=== PATIENT | female | born 1960 | race Caucasian/White ===

== ENCOUNTER 2016-09-12 08:00 | Day surgery (SDC) | payer MEDICARE, OTHER ==
[~2016-09-12 08:00] MED LIST: CLINDAMYCIN 900 MG in DEXTROSE 5% IN WATER 50 ML IVPB ONE; HEPARIN SODIUM,PORCINE 5,000 UNIT/ML 1 ML VIAL SQ ONE; Pre Op ABX Message 1 EACH MISC MISCELLANE ONE
[2016-09-12] MEDS ORDERED: ONDANSETRON 4 MG/2 ML VIAL IVP ONE (08:13)
[2016-09-12] MEDS ORDERED: LACTATED RINGERS 1,000 ML IV SCH (08:13)
[2016-09-12] MEDS ORDERED: DEXAMETHASONE SOD PHOSPHATE 10 MG/ML 1 ML VIAL IV ONE (08:13)
[2016-09-12] MEDS ORDERED: MIDAZOLAM 2 MG/2 ML VIAL IV PRN (08:13)
[2016-09-12] MEDS ORDERED: LIDOCAINE 1% 20 ML VIAL (10MG/ML) FOR IV START INTRADERMA ONE (08:40)
[2016-09-12] MEDS ORDERED: GENTAMICIN 320 MG in SODIUM CHLORIDE 0.9% 100 ML IVPB ONE (08:45)
--- NOTE | 2016-09-12 09:28 | P.HPIHPCON ---
History of Present Illness H&P Date: 09/12/16 Chief Complaint: Right upper quadrant pain Patient is a 56-year-old female who presented with right upper quadrant pain radiates to the back is associated with fatty food intolerance. His no nausea no vomiting. Does note weight loss. There's no history of jaundice regular rectus. No history of fever or chills. He does she did see the vegetable canner prior to the surgery and was cleared by them. Consent for Procedure: I have explained the operation/procedure to the patient, including the risks, benefits, side effects, alternative therapies (including not receiving the proposed treatment or service), the likelihood of the patient achieving his/her goals, and potential recuperation problems for the procedure/sedation/analgesia , as well as any blood products, if indicated. I also explained to the patient the risks, benefits and side effects of the alternatives, as well as the risks related to not receiving the proposed procedure, care, treatment, or services. - Constitutional Constitutional: Denies chills, Denies fever - EENT Eyes: denies blurred vision, denies pain - Cardiovascular Cardiovascular: Denies chest pain, Denies shortness of breath - Respiratory Respiratory: Denies cough, Denies 7 - Gastrointestinal Gastrointestinal: Reports as per HPI - Musculoskeletal Musculoskeletal: Denies myalgias - Integumentary Integumentary: Denies pruritus, Denies rash - Neurological Neurological: Denies numbness, Denies weakness - Psychiatric Psychiatric: Denies anxiety, Denies depression Past Medical History Past Medical History: Asthma, GERD/Reflux, Hyperlipidemia, Hypertension History of Any Multi-Drug Resistant Organisms: None Reported Past Surgical History: Joint Replacement, Orthopedic Surgery, Tubal Ligation Past Psychological History: Anxiety, Bipolar, Depression Smoking Status: Never smoker Past Alcohol Use History: None Reported Past Drug Use History: None Reported Medications and Allergies Home Medications Medication Instructions Recorded Confirmed Type Venlafaxine HCl ER [Effexor Xr] 250 mg PO DAILY 12/12/14 09/12/16 History traZODone HCL [Desyrel] 100 mg PO HS 12/12/14 09/12/16 History Atorvastatin [Lipitor] 10 mg PO HS 03/13/15 09/12/16 History Omeprazole [Omeprazole] 10 mg PO HS 03/13/15 09/12/16 History Allergies Allergy/AdvReac Type Severity Reaction Status Date / Time Penicillins Allergy Unknown Verified 09/12/16 08:14 sulfamethoxazole Allergy Unknown Verified 09/12/16 08:14 [From Bactrim] trimethoprim [From Bactrim] Allergy Unknown Verified 09/12/16 08:14 Surgical - Exam Vital Signs Temp Pulse Resp BP Pulse Ox 98.1 F 58 L 16 107/55 98 09/12/16 08:21 09/12/16 08:21 09/12/16 08:21 09/12/16 08:21 09/12/16 08:21 - General well developed, no distress - Eyes PERRL, normal ocular movement, no icteric - ENT normal pinna, normal nares, normal mucosa - Neck no masses - Respiratory normal expansion, normal respiratory effort - Cardiovascular Rhythm: regular - Abdomen Abdomen: soft, non tender - Integumentary no rash, no growths - Neurologic no disoriented, no combative - Musculoskeletal normal gait, normal posture Results - Imaging US - abdomen: report reviewed (Cholelithiasis) Assessment and Plan (1) Chronic cholecystitis with calculus Narrative/Plan: Patient's average risk she is chronically lithiasis with symptoms most likely chronic cholecystitis her history is consistent with gallbladder stone disease. Have recommended a laparoscopic possible open cholecystectomy risks benefits of the procedure including injury to the bile duct and bowel were all discussed patient stand and is willing to proceed. Status: Acute
[2016-09-12] MEDS ORDERED: MIDAZOLAM 2 MG/2 ML VIAL ONE (09:36)
[2016-09-12] MEDS ORDERED: DEXTROSE 5% IN WATER 50 ML BAG ONE (09:36)
[2016-09-12] MEDS ORDERED: PROPOFOL 10 MG/ML 20 ML VIAL IV ONE (09:36)
[2016-09-12] MEDS ORDERED: SUCCINYLCHOLINE CHLORIDE 100 MG/5 ML SYR IV ONE (09:36)
[2016-09-12] MEDS ORDERED: CLINDAMYCIN 150 MG/ML 6 ML VIAL ONE (09:36)
[2016-09-12] MEDS ORDERED: SODIUM CHLORIDE 0.9% 100 ML BAG ONE (09:36)
[2016-09-12] MEDS ORDERED: LIDOCAINE 1% INJ 10MG/ML (20 ML MDV) ONE (09:36)
[2016-09-12] MEDS ORDERED: GENTAMICIN 80 MG/2 ML (MDV) VIAL ONE (09:36)
[2016-09-12] MEDS ORDERED: ROCURONIUM BROMIDE 10 MG/ML 10 ML VIAL IV ONE (09:36)
[2016-09-12] MEDS ORDERED: NEOSTIGMINE 1 MG/ML 10 ML VIAL ONE (09:36)
[2016-09-12] MEDS ORDERED: LACTATED RINGERS 1,000 ML BAG IV ONE (09:36)
[2016-09-12] MEDS ORDERED: fentaNYL (PF) 50 MCG/ML 2 ML AMP ONE (09:36)
[2016-09-12] MEDS ORDERED: GLYCOPYRROLATE 0.2 MG/ML 2 ML VIAL ONE (09:36)
[2016-09-12] MEDS ORDERED: BUPIVACAIN-EPI 0.25%-1:200,000 30 ML VIAL SQ ONE ×2 (09:56)
[2016-09-12] MEDS ORDERED: LACTATED RINGERS 1,000 ML IV ONE (10:27)
--- NOTE | 2016-09-12 10:59 | P.OP ---
Date of Procedure: 09/12/16 Preoperative Diagnosis: Chronic choelcystitis Postoperative Diagnosis: Chronic choelcsytitis Procedure(s) Performed: Laparoscopic cholecystectomy Anesthesia: JUDIT Surgeon: Melissa Alvarez Pathology: other Condition: stable Disposition: PACU Operative Findings: Extensive adhesions with the peritoneum, very thick-walled gallbladder, indeterminant hole in the gallbladder led to some leakage which was thoroughly irrigated and sucked dry. It was sent for culture and cytology. Description of Procedure: The patient is a 6-year-old female who presented with epigastric and upper abdominal pain which localized in the right upper quadrant was tender with an ultrasound suggested cholelithiasis. Clinical diagnosis of chronic cholecystitis was made. The risks benefits and possible complications of the procedure were discussed in detail and informed consent was obtained. Patient was identified in the preop operating holding area questions were answered and she was taken back to the operating room where she was placed in the supine position. She was given general anesthesia with endotracheal intubation followed by the placement of an orogastric tube and a appropriate timeout was called the indication procedure ALLERGIES medications from her prophylaxis were all discussed. Abdomen is prepped and draped in the usual sterile surgical fashion supraumbilical region was infiltrated with quarter percent with local anesthesia and incision was made with 11 blade and Veress needle was introduced and abdomen was insufflated to 15 mmHg. Once that was done a 10 mm epigastric port and two 5 mm right upper quadrant ports were placed.the gallbladder was retracted cephalad and superiorly.The fundus was retracted so as to make the Calot's triangle more visible. There were inflammatory peritoneal adhesions and the gallbladder was distended. The adhesions were taken down with the help of blunt dissection and using some electrocautery, skeletonizing the cystic duct and the multiple branches of the cystic artery. Cystic duct was clipped proximally and distally followed by clipping of the branches of the cystic artery following which they were transected sharply with the help of the lg. The gallbladder was then taken off the gallbladder fossa with the help of electrocautery and placed in an Endo Catch bag and removed through the 10 m port site after dilating the port site with a Yumiko. The port was replaced and the gallbladder fossa was inspected and hemostasis was secured with the help of electrocautery the abdomen was thoroughly irrigated and sucked dry. Dashawn were noted to be in the appropriate position at this time to take procedure was terminated. the 10 mm port was removed and the port site was closed with the help of a Brennan Benavidez using 0 Vicryl.The Gas was shut off and all the 5 mm ports were removed. The abdomen was thoroughly desufflated. The remaining local anesthesia was infiltrated into the incisions and the incisions were closed with the help of 4-0 Monocryl Steri-Strips and dermabondl was applied. The patient was extubated and taken to recovery room in stable condition There were no complications.
[2016-09-12 11:04] VITALS: TEMP 96.9
[2016-09-12] MEDS: HYDROmorphone 1 MG/ML 1 ML SYRINGE IVP PRN ×3 (11:13→11:38)
[2016-09-12 12:07] VITALS: RESP 18
[2016-09-12] MEDS ORDERED: HYDROcodone/APAP 5-325MG 1 EACH TAB PO ONE (12:23)
[2016-09-12] MEDS: LACTATED RINGERS 1,000 ML IV ONE ×2 (14:22→15:15)
[2016-09-12 15:12] VITALS: BP 93/61; PULSE 61
== END 2016-09-12 15:24 | disposition home or self-care (01) ==
LOC: OR 08:00
PROVIDERS: ATTEND Surgery
DX: K80.10 Calculus of gallbladder with chronic cholecystitis without obstruction (principal); K66.0 Peritoneal adhesions (postprocedural) (postinfection); E78.2 Mixed hyperlipidemia; K21.9 Gastro-esophageal reflux disease without esophagitis; F41.9 Anxiety disorder, unspecified; F31.9 Bipolar disorder, unspecified; Z79.899 Other long term (current) drug therapy; Z88.1 Allergy status to other antibiotic agents; Z88.0 Allergy status to penicillin; Z88.2 Allergy status to sulfonamides; Z82.49 Family history of ischemic heart disease and other diseases of the circulatory system; Z87.891 Personal history of nicotine dependence
CPT/HCPCS: 47562; 88108; 88305; 87070; 87205; 87075; J2250; J1644; J1100; J2710; J2405; J2001; J3010; J1580; J1170; J0330; J2704; 88304; 88311

== ENCOUNTER → 2017-01-30 | Outpatient (CLI) | payer MEDICARE, OTHER ==
--- NOTE | 2017-01-31 07:48 | XR ---
Right foot HISTORY: Trauma and pain 3 views of the right foot The digits are flexed, correlate for flexion deformities. Bone mineralization and alignment maintaine d. Questionable lucency on the frontal view of the proximal phalanx of the fifth digit. There is soft tissue swelling present. IMPRESSION: Technically may limit sensitivity, difficult to exclude fracture at the fifth digit. Foll ow-up as indicated.
== END | disposition home or self-care (01) ==
LOC: RADXRMAIN 16:14
PROVIDERS: ATTEND Nurse Practitioner
DX: M79.671 Pain in right foot (principal)

== ENCOUNTER 2017-11-18 21:35 | Emergency (ER) | payer MEDICARE, OTHER ==
[2017-11-18 21:47] VITALS: TEMP 98.1
[2017-11-18 22:31] LABS: Basophils # (A) 0.1 k/uL (0-0.2); Basophils % (A) 1 %; Eosinophils # (A) 0.2 k/uL (0-0.7); Eosinophils % (A) 2 %; HCT 44.2 % (34.0-46.0); HGB 14.6 gm/dL (11.4-16.0); Lymphocytes # (A) 2.8 k/uL (1.0-4.8); Lymphocytes % (A) 27 %; MCH 28.3 pg (25.0-35.0); MCV 85.9 fL (80.0-100.0); Mean Platelet Volume 7.6; Monocytes # (A) 0.7 k/uL (0-1.0); Monocytes % (A) 6 %; Neutrophils # (A) 6.7 k/uL (1.3-7.7); Neutrophils % (A) 63 %; Platelet Count 222 k/uL (150-450); RBC 5.14 m/uL (3.80-5.40); RDW 14.2 % (11.5-15.5); WBC 10.6 k/uL (3.8-10.6)
[2017-11-18 22:42] LABS: INR 1.1 (<1.2); Prothrombin Time 10.4 sec (9.0-12.0)
[2017-11-18 22:44] LABS: ALT 33 U/L (9-52); AST 36 U/L (14-36); Albumin 2.9 g/dL (3.5-5.0); Alkaline Phosphatase 107 U/L (38-126); Anion Gap 8 mmol/L; Blood Urea Nitrogen 17 mg/dL (7-17); C Reactive Protein <5.0 mg/L (<10.0); Calcium 8.6 mg/dL (8.4-10.2); Carbon Dioxide 27 mmol/L (22-30); Chloride 104 mmol/L (98-107); Glucose 133 mg/dL (74-99); Potassium 3.6 mmol/L (3.5-5.1); Sodium 139 mmol/L (137-145); Total Bilirubin 0.2 mg/dL (0.2-1.3)
--- NOTE | 2017-11-18 22:50 | US ---
EXAMINATION TYPE: US venous doppler duplex LE RT DATE OF EXAM: 11/18/2017 10:02 PM COMPARISON: US 2013 CLINICAL HISTORY: Pain. Right leg pain SIDE PERFORMED: Right TECHNIQUE: The lower extremity deep venous system is examined utilizing real time linear array sonog mumtaz with graded compression, doppler sonography and color-flow sonography. VESSELS IMAGED: External Iliac Vein (EIV) Common Femoral Vein Deep Femoral Vein Greater Saphenous Vein * Femoral Vein Popliteal Vein Small Saphenous Vein * Proximal Calf Veins (* superficial vessels) Right Leg: Appears negative for DVT IMPRESSION: Negative exam. No evidence of deep venous thrombosis in the right leg.
[2017-11-18 23:06] LABS: Partial Thromboplastin Time 21.4 sec (22.0-30.0)
--- NOTE | 2017-11-18 23:18 | ED ---
General Adult HPI - General Chief complaint: Extremity Injury, Lower Stated complaint: Bilateral Leg Pain Time Seen by Provider: 11/18/17 21:49 Source: patient, RN notes reviewed Mode of arrival: EMS Limitations: no limitations - History of Present Illness Initial comments: 57-year-old female presents to the emergency department with a chief complaint of bilateral anterior thigh pain. She states that she went to twist and she noticed a little bit of pulling and bilateral thighs. She states it's worse on the right than the left. She states that Dr. Michelle was concerned about her right knee possibly infected in August she also like the blood work drawn that he ordered at that time. She denies any fever chills any falls. She denies any direct injury to the legs. She states her feeling better and when the initial injury happened. She was just concerned so she thought that she should be seen. She states she has been able to ambulate on them. She denies any numbness or tingling. She states it just feels like a muscle pulling. Patient denies any recent fever, chills, shortness of breath, chest pain, back pain, abdominal pain, nausea vomiting, numbness or tingling, dysuria or hematuria, constipation or diarrhea, headaches or visual changes, or any other current symptoms. - Related Data Home Medications Medication Instructions Recorded Confirmed Venlafaxine HCl ER [Effexor Xr] 150 mg PO DAILY 12/12/14 11/18/17 traZODone HCL [Desyrel] 100 mg PO HS 12/12/14 11/18/17 Cyanocobalamin (Vitamin B-12) 1,000 mcg PO DAILY 11/18/17 11/18/17 [Vitamin B-12] Loratadine [Claritin] 10 mg PO DAILY 11/18/17 11/18/17 Vitamin D3 500 unit PO DAILY 11/18/17 11/18/17 Previous Rx's Medication Instructions Recorded Ibuprofen [Motrin] 600 mg PO Q6HR PRN #20 tab 11/18/17 Allergies Allergy/AdvReac Type Severity Reaction Status Date / Time Penicillins Allergy Unknown Verified 11/18/17 22:20 sulfamethoxazole Allergy Unknown Verified 11/18/17 22:20 [From Bactrim] trimethoprim [From Bactrim] Allergy Unknown Verified 11/18/17 22:20 Review of Systems ROS Statement: Those systems with pertinent positive or pertinent negative responses have been documented in the HPI. ROS Other: All systems not noted in ROS Statement are negative. Past Medical History Past Medical History: Asthma, GERD/Reflux, Hyperlipidemia, Hypertension History of Any Multi-Drug Resistant Organisms: None Reported Past Surgical History: Joint Replacement, Orthopedic Surgery, Tubal Ligation Past Psychological History: Anxiety, Bipolar, Depression Smoking Status: Never smoker Past Alcohol Use History: None Reported Past Drug Use History: None Reported General Exam Limitations: no limitations General appearance: alert, in no apparent distress Eye exam: Present: normal appearance, PERRL, EOMI. Absent: scleral icterus, conjunctival injection, periorbital swelling ENT exam: Present: normal exam, mucous membranes moist Neck exam: Present: normal inspection. Absent: tenderness, meningismus, lymphadenopathy Respiratory exam: Present: normal lung sounds bilaterally. Absent: respiratory distress, wheezes, rales, rhonchi, stridor Cardiovascular Exam: Present: regular rate, normal rhythm, normal heart sounds. Absent: systolic murmur, diastolic murmur, rubs, gallop, clicks GI/Abdominal exam: Present: soft, normal bowel sounds. Absent: distended, tenderness, guarding, rebound, rigid Extremities exam: Present: normal inspection, full ROM, normal capillary refill. Absent: tenderness, pedal edema, joint swelling, calf tenderness Back exam: Present: normal inspection Neurological exam: Present: alert, oriented X3, CN II-XII intact Psychiatric exam: Present: normal affect, normal mood Skin exam: Present: warm, dry, intact, normal color. Absent: rash Course Vital Signs 11/18/17 21:44 Temperature 98.1 F Pulse Rate 81 Respiratory 18 Rate Blood Pressure 119/60 O2 Sat by Pulse 97 Oximetry Medical Decision Making - Medical Decision Making 57-year-old female presents for anterior thigh pain. This time we discussed most likely musculoskeletal strain. At this time lab work was reviewed. We discussed continued follow-up with her orthopedic Dr. Dr. Michelle. We discussed return parameters all questions. Patient stated that she understood and she is in agreement this plan. All questions have been answered. She will be discharged home. - Lab Data Result diagrams: 11/18/17 22:20 11/18/17 22:20 Lab Results 11/18/17 11/18/17 11/18/17 Range/Units 22:20 22:20 22:20 WBC 10.6 (3.8-10.6) k/uL RBC 5.14 (3.80-5.40) m/uL Hgb 14.6 (11.4-16.0) gm/dL Hct 44.2 (34.0-46.0) % MCV 85.9 (80.0-100.0) fL MCH 28.3 (25.0-35.0) pg MCHC 33.0 (31.0-37.0) g/dL RDW 14.2 (11.5-15.5) % Plt Count 222 (150-450) k/uL Neutrophils % 63 % Lymphocytes % 27 % Monocytes % 6 % Eosinophils % 2 % Basophils % 1 % Neutrophils # 6.7 (1.3-7.7) k/uL Lymphocytes # 2.8 (1.0-4.8) k/uL Monocytes # 0.7 (0-1.0) k/uL Eosinophils # 0.2 (0-0.7) k/uL Basophils # 0.1 (0-0.2) k/uL ESR 2 (0-20) mm/hr PT 10.4 (9.0-12.0) sec INR 1.1 (<1.2) APTT 21.4 L (22.0-30.0) sec Sodium 139 (137-145) mmol/L Potassium 3.6 (3.5-5.1) mmol/L Chloride 104 (98-107) mmol/L Carbon Dioxide 27 (22-30) mmol/L Anion Gap 8 mmol/L BUN 17 (7-17) mg/dL Creatinine 0.60 (0.52-1.04) mg/dL Est GFR (CKD-EPI)AfAm >90 (>60 ml/min/1.73 sqM) Est GFR (CKD-EPI)NonAf >90 (>60 ml/min/1.73 sqM) Glucose 133 H (74-99) mg/dL Calcium 8.6 (8.4-10.2) mg/dL Total Bilirubin 0.2 (0.2-1.3) mg/dL AST 36 (14-36) U/L ALT 33 (9-52) U/L Alkaline Phosphatase 107 (38-126) U/L C-Reactive Protein <5.0 (<10.0) mg/L Total Protein 5.0 L (6.3-8.2) g/dL Albumin 2.9 L (3.5-5.0) g/dL Disposition Clinical Impression: Muscle strain of thigh Disposition: HOME SELF-CARE Condition: Stable Instructions: Muscle Strain (ED) Additional Instructions: Please use medication as discussed. Please follow up with family doctor if symptoms have not improved over the next two days. Please return to the emergency room if your symptoms increase or worsen or for any other concerns. Prescriptions: Ibuprofen [Motrin] 600 mg PO Q6HR PRN #20 tab PRN Reason: Pain Referrals: Gogo Mandel MD [Primary Care Provider] - 1-2 days Time of Disposition: 23:38
[2017-11-18] MEDS ORDERED: KETOROLAC 30 MG/ML 1 ML VIAL IVP STA (23:25)
[2017-11-18 23:36] LABS: Erythrocyte Sedimentation Rate 2 mm/hr (0-20)
[2017-11-18 23:47] VITALS: BP 111/58; PULSE 78; RESP 16
--- NOTE | 2017-11-21 00:23 | CDI ---
Documentation Clarification OP Dear Dania CHARLES PA-C, PAC Please do addendum to ED report for missing specific site(RT/LT) of thigh strain. Thank you, Citlalli Blue Basket Grader If you have any questions, please contact Veneer Sawyer at [phone] [facility]
== END 2017-11-18 23:46 | disposition home or self-care (01) ==
LOC: EC 21:35
DX: S76.912A Strain of unspecified muscles, fascia and tendons at thigh level, left thigh, initial encounter (principal); S76.911A Strain of unspecified muscles, fascia and tendons at thigh level, right thigh, initial encounter; F41.9 Anxiety disorder, unspecified; F32.9 Major depressive disorder, single episode, unspecified; Z79.899 Other long term (current) drug therapy; Z88.0 Allergy status to penicillin; Z88.2 Allergy status to sulfonamides; X50.1XXA Overexertion from prolonged static or awkward postures, initial encounter
CPT/HCPCS: 99284; 96374; 36415; 80053; 85652; 85025; 85610; 85730; 86140; 93971; J1885

== ENCOUNTER 2018-03-13 23:11 | Emergency (ER) | payer MEDICARE, OTHER ==
[2018-03-13 23:25] VITALS: RESP 18
[2018-03-14] MEDS ORDERED: LIDOCAINE 1% INJ 10MG/ML (20 ML MDV) SQ ONE (01:10)
[2018-03-14] MEDS ORDERED: DIPH,PERTUS(ACELL)TETVAC-LF 0.5 ML VIAL IM ONE (01:10)
[2018-03-14] MEDS ORDERED: TOPICAL SKIN ADHESIVE 1 EACH AMP TOPICAL ONE (01:23)
[2018-03-14] MEDS ORDERED: IBUPROFEN 600 MG TAB PO STA (01:46)
--- NOTE | 2018-03-14 02:06 | ED ---
Wound/Laceration HPI - General Chief Complaint: Wound/Laceration Stated Complaint: Laceration Time Seen by Provider: 03/14/18 00:49 Source: patient, EMS Mode of arrival: ambulatory Limitations: no limitations - History of Present Illness Initial Comments: 57 year-old female patient presented to the emergency department today for evaluation of laceration to the distal tip of the right index finger. Patient states that just prior to arrival she was washing dishes when she scraped the finger on a new grater. Patient is unsure when her last tetanus shot was given. Bleeding is currently controlled and she denies any numbness or tingling to the finger. Denies any difficulty with range of motion. Denies any other injuries. Patient denies any headache, neck pain, back pain, chest pain, shortness of breath, dizziness, weakness, abdominal pain, nausea, vomiting , or difficulties with bowel movements or urination. - Related Data Home Medications Medication Instructions Recorded Confirmed Venlafaxine HCl ER [Effexor Xr] 150 mg PO DAILY 12/12/14 11/18/17 traZODone HCL [Desyrel] 100 mg PO HS 12/12/14 11/18/17 Cyanocobalamin (Vitamin B-12) 1,000 mcg PO DAILY 11/18/17 11/18/17 [Vitamin B-12] Loratadine [Claritin] 10 mg PO DAILY 11/18/17 11/18/17 Vitamin D3 500 unit PO DAILY 11/18/17 11/18/17 Previous Rx's Medication Instructions Recorded Ibuprofen [Motrin] 600 mg PO Q6HR PRN #20 tab 11/18/17 Allergies Allergy/AdvReac Type Severity Reaction Status Date / Time Penicillins Allergy Unknown Verified 03/13/18 23:21 sulfamethoxazole Allergy Unknown Verified 03/13/18 23:21 [From Bactrim] trimethoprim [From Bactrim] Allergy Unknown Verified 03/13/18 23:21 Review of Systems ROS Statement: Those systems with pertinent positive or pertinent negative responses have been documented in the HPI. ROS Other: All systems not noted in ROS Statement are negative. Past Medical History Past Medical History: Asthma, GERD/Reflux, Hyperlipidemia, Hypertension History of Any Multi-Drug Resistant Organisms: None Reported Past Surgical History: Joint Replacement, Orthopedic Surgery, Tubal Ligation Past Psychological History: Anxiety, Bipolar, Depression Smoking Status: Never smoker Past Alcohol Use History: None Reported Past Drug Use History: None Reported General Exam Limitations: no limitations General appearance: alert, in no apparent distress, other (This is a well- developed, well-nourished adult female patient in no acute distress. Vital signs upon presentation are temperature 98.2F, pulse 68, respirations 18, blood pressure 112/65, pulse ox 100% on room air.) Eye exam: Present: normal appearance, PERRL, EOMI. Absent: scleral icterus, conjunctival injection, periorbital swelling ENT exam: Present: normal exam, normal oropharynx, mucous membranes moist Respiratory exam: Present: normal lung sounds bilaterally. Absent: respiratory distress, wheezes, rales, rhonchi, stridor Cardiovascular Exam: Present: regular rate, normal rhythm, normal heart sounds. Absent: systolic murmur, diastolic murmur, rubs, gallop, clicks Extremities exam: Present: full ROM, normal capillary refill, other (patient has 1cm flap laceration to the distal tip of the right index finger. ). Absent : normal inspection, tenderness, pedal edema, joint swelling, calf tenderness Back exam: Present: normal inspection Neurological exam: Present: alert, oriented X3, CN II-XII intact Psychiatric exam: Present: normal affect, normal mood Skin exam: Present: warm, dry, intact, normal color. Absent: rash Course Vital Signs 03/13/18 03/14/18 23:21 02:18 Temperature 98.2 F 98.4 F Pulse Rate 68 69 Respiratory 18 18 Rate Blood Pressure 112/65 130/84 O2 Sat by Pulse 100 100 Oximetry Procedures - Laceration Laceration #1 Indication: laceration Site: other (Index finger, right) Size (cm): 1 Depth: simple, single layer Type of Sutures: other (Exofin) Patient Tolerated Procedure: well, no complications Medical Decision Making - Medical Decision Making 57 year-old female patient percents to the emergency department today for evaluation of laceration to the distal tip of the right index finger. There was 1 cm flap-like laceration noted to the distal tip of the finger. Neurovascular status was intact. The flap of skin was quite pale, did discuss the possibility that this would not adhered to the wound bed. We did repair the laceration with exofin an skin adhesive. Patient was updated on her tetanus shot. We discussed pain control and signs or symptoms of infection. She is instructed to follow-up with her primary care physician for recheck in 1- 2 days. Return parameters discussed in detail. She verbalizes understanding and agrees with this plan. Disposition Clinical Impression: Laceration of right index finger Disposition: HOME SELF-CARE Condition: Good Instructions: Finger Laceration (ED), Skin Adhesive Care (ED) Additional Instructions: Follow-up with your primary care physician for recheck in 1-2 days. Monitor for signs or symptoms of infection including but not limited to redness, swelling, drainage of pus, fever, or chills. Is patient prescribed a controlled substance at d/c from ED?: No Referrals: [facility] [Primary Care Provider] - 1-2 days Time of Disposition: 02:06
[2018-03-14 02:20] VITALS: BP 130/84; PULSE 69; TEMP 98.4
== END 2018-03-14 02:17 | disposition home or self-care (01) ==
LOC: EC 23:11
DX: S61.210A Laceration without foreign body of right index finger without damage to nail, initial encounter (principal); F31.9 Bipolar disorder, unspecified; F41.9 Anxiety disorder, unspecified; Z23 Encounter for immunization; Z98.890 Other specified postprocedural states; Z79.899 Other long term (current) drug therapy; Z88.0 Allergy status to penicillin; Z88.1 Allergy status to other antibiotic agents; Z88.2 Allergy status to sulfonamides; W26.8XXA Contact with other sharp object(s), not elsewhere classified, initial encounter; Y93.G1 Activity, food preparation and clean up
CPT/HCPCS: 12001; 73502; 76705; 90471; 90715; 99283; 99284

== ENCOUNTER 2018-03-14 07:25 | Emergency (ER) | payer MEDICARE, OTHER ==
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
--- NOTE | 2018-03-14 09:36 | US ---
EXAMINATION TYPE: US abdomen limited DATE OF EXAM: 03/14/2018 COMPARISON: Complete abdominal ultrasound June 29, 2016 CLINICAL HISTORY: Pain. Fall on right side EXAM MEASUREMENTS: Liver Length: 13.6 cm Gallbladder Wall: surgically absent CBD: 0.5 cm Right Kidney: 9.6 x 4.3 x 4.4 cm Pancreas: obscured Liver: wnl Gallbladder: surgically absent Evidence for sonographic Mendosa's sign: no CBD: visualized portions wnl, limited by overlying bowel gas Right Kidney: wnl Pancreas is obscured by overlying bowel gas on images saved. Visualized liver shows no suspicious mas s or ductal dilatation. No surrounding fluid or ascites is seen. Limited images of right kidney show no hydronephrosis. Gallbladder is surgically absent. IMPRESSION: No suspicious posttraumatic or acute finding seen to account for patient's symptoms of pa in. Interval cholecystectomy noted.
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
[2018-03-14 10:55] VITALS: BP 125/61; PULSE 60; RESP 18; TEMP 98.2
== END 2018-03-14 10:55 | disposition home or self-care (01) ==
LOC: EC 07:25
DX: S22.31XA Fracture of one rib, right side, initial encounter for closed fracture (principal); S70.11XA Contusion of right thigh, initial encounter; S61.219A Laceration without foreign body of unspecified finger without damage to nail, initial encounter; R10.9 Unspecified abdominal pain; F32.9 Major depressive disorder, single episode, unspecified; F41.9 Anxiety disorder, unspecified; Z79.899 Other long term (current) drug therapy; Z88.0 Allergy status to penicillin; Z88.1 Allergy status to other antibiotic agents; Z88.5 Allergy status to narcotic agent; Y00.XXXA Assault by blunt object, initial encounter; Y92.009 Unspecified place in unspecified non-institutional (private) residence as the place of occurrence of the external cause
CPT/HCPCS: 73502; 76705; 99284

== ENCOUNTER → 2018-08-06 | Outpatient (CLI) | payer MEDICARE, OTHER ==
--- NOTE | 2018-08-06 08:42 | XR ---
EXAMINATION TYPE: XR chest 2V DATE OF EXAM: 08/06/2018 COMPARISON: NONE TECHNIQUE: PA and lateral views submitted. HISTORY: Pain FINDINGS: The lungs are clear and there is no pneumothorax, pleural effusion, or focal pneumonia. Prominence the right perihilum. Hypertrophic and degenerative change of the spine. Surgical clips in the abdomen . There is limited inspiration. IMPRESSION: 1. No acute process. It does appear to be prominence of the right suprahilar region. Recommend CT of the chest for further analysis.
[2018-08-06 09:05] LABS: Basophils % (A) 1 %; Eosinophils # (A) 0.1 k/uL (0-0.7); Eosinophils % (A) 2 %; HCT 44.4 % (34.0-46.0); HGB 14.2 gm/dL (11.4-16.0); Lymphocytes # (A) 1.3 k/uL (1.0-4.8); Lymphocytes % (A) 22 %; MCH 28.8 pg (25.0-35.0); MCHC 31.9 g/dL (31.0-37.0); MCV 90.4 fL (80.0-100.0); Mean Platelet Volume 7.3; Monocytes # (A) 0.2 k/uL (0-1.0); Monocytes % (A) 4 %; Neutrophils % (A) 70 %; Platelet Count 197 k/uL (150-450); RBC 4.92 m/uL (3.80-5.40); RDW 14.2 % (11.5-15.5); WBC 5.8 k/uL (3.8-10.6)
[2018-08-06 09:21] LABS: ALT 40 U/L (9-52); AST 46 U/L (14-36); Albumin 2.7 g/dL (3.5-5.0); Alkaline Phosphatase 81 U/L (38-126); Anion Gap 4 mmol/L; Blood Urea Nitrogen 11 mg/dL (7-17); Calcium 8.7 mg/dL (8.4-10.2); Carbon Dioxide 31 mmol/L (22-30); Chloride 106 mmol/L (98-107); Glucose 81 mg/dL (74-99); Potassium 3.9 mmol/L (3.5-5.1); Sodium 141 mmol/L (137-145); Total Bilirubin 0.2 mg/dL (0.2-1.3); Total Protein 4.9 g/dL (6.3-8.2)
[2018-08-06 09:37] LABS: T4, Free (Free Thyroxine) 0.83 ng/dL (0.78-2.19)
[2018-08-06 16:46] LABS: Gliadin AB IgA, Unit <0.2 U/mL
[2018-08-06 17:00] LABS: Vitamin D 25 Hydroxy 32.2 ng/mL (30.0-100.0)
== END | disposition home or self-care (01) ==
LOC: RADXRMAIN 07:44
PROVIDERS: ATTEND Physician Assistant Medical
DX: R60.9 Edema, unspecified (principal); E78.2 Mixed hyperlipidemia; E55.9 Vitamin D deficiency, unspecified; Z00.01 Encounter for general adult medical examination with abnormal findings
CPT/HCPCS: 36415; 71046; 80053; 82306; 83516; 84439; 84443; 85025; 87045; 87046; 87328; 87329

== ENCOUNTER 2018-11-01 16:00 | Emergency (ER) | payer MEDICARE, OTHER ==
--- NOTE | 2018-11-01 16:57 | XR ---
EXAMINATION TYPE: XR cervical spine comp DATE OF EXAM: 11/01/2018 COMPARISON: NONE HISTORY: Shoulder pain TECHNIQUE: 5 views FINDINGS: Vertebra have normal alignment. There is narrowing and spur formation at C5-6. The other di sc spaces appear normal. Posterior elements are intact. Atlantoaxial facet joint is normal. There are no cervical ribs. Neural foramina appear normal. IMPRESSION: Mild spondylosis at C5-6. No fracture.
--- NOTE | 2018-11-01 16:58 | XR ---
EXAMINATION TYPE: XR shoulder complete RT DATE OF EXAM: 11/01/2018 COMPARISON: NONE HISTORY: Shoulder pain TECHNIQUE: 4 views FINDINGS: I see no fracture nor dislocation. Joint spaces are fairly normal. There are no pathologic calcifications. IMPRESSION: Negative right shoulder exam.
--- NOTE | 2018-11-01 17:04 | XR ---
EXAMINATION TYPE: XR Hip Complete RT DATE OF EXAM: 11/01/2018 COMPARISON: 03/14/2018 HISTORY: Shoulder pain. Pain hip pain TECHNIQUE: 2 views FINDINGS: I see no fracture nor dislocation. Hip joint space is fairly normal. Sacroiliac joint appea rs normal. There are no pathologic calcifications. IMPRESSION: Negative right hip exam. No change.
[2018-11-01] MEDS ORDERED: CYCLOBENZAPRINE 10MG STARTER 3 TAB BTL PO STA (17:12)
--- NOTE | 2018-11-01 17:12 | ED ---
Fall HPI - General Chief Complaint: Fall Stated Complaint: Fall,head injury Time Seen by Provider: 11/01/18 16:13 Source: patient Mode of arrival: ambulatory - History of Present Illness Initial Comments: 58-year-old female presenting today for chief complaint of slip and fall. Patient states she slipped and fell on ice. Patient states she fell on her right side, patient states on the fall she had right-sided neck and right shoulder pain. Patient states she is able to range the right shoulder however there is increased pain with full hyperextension and full flexion near the ear. Patient denies any numbness tingling or loss sensation of the upper extremity. Patient states she did hit her head, she states this is not hard and had no loss of consciousness, denies any headache, visual changes speech changes numbness tingling paresthesias, gait changes dizziness or any other neurological complaints. Patient states she also is tender patient on her right hip. She states she has no difficulty weightbearing or ranging of her head. Denies any shortening or rotation. Patient denies significant pain with range of motion, states is more tender to palpation. Remaining review of systems negative patient denies any low back pain, trauma to the chest or thorax , fever, chills, shortness of breath, chest pain, back pain, abdominal pain, nausea or vomiting, numbness or tingling, dysuria or hematuria, constipation or diarrhea, headaches or visual changes, or any other complaints. Upon arrival patient's vital signs within normal limits. - Related Data Home Medications Medication Instructions Recorded Confirmed Venlafaxine HCl ER [Effexor Xr] 150 mg PO DAILY 12/12/14 11/01/18 traZODone HCL [Desyrel] 100 mg PO HS 12/12/14 11/01/18 Cyanocobalamin (Vitamin B-12) 1,000 mcg PO DAILY 11/18/17 11/01/18 [Vitamin B-12] Loratadine [Claritin] 10 mg PO DAILY 11/18/17 11/01/18 Cholecalciferol [Vitamin D3] 5,000 unit PO DAILY 03/14/18 11/01/18 Allergies Allergy/AdvReac Type Severity Reaction Status Date / Time meperidine [From Demerol] Allergy Unknown Verified 11/01/18 17:00 Milk Containing Products Allergy Nausea & Verified 11/01/18 17:02 [Dairy] Vomiting & Diarrhea Penicillins Allergy Unknown Verified 11/01/18 17:00 sulfamethoxazole Allergy Unknown Verified 11/01/18 17:00 [From Bactrim] trimethoprim [From Bactrim] Allergy Unknown Verified 11/01/18 17:00 Review of Systems ROS Statement: Those systems with pertinent positive or pertinent negative responses have been documented in the HPI. ROS Other: All systems not noted in ROS Statement are negative. Past Medical History Past Medical History: Asthma, GERD/Reflux, Hyperlipidemia History of Any Multi-Drug Resistant Organisms: None Reported Past Surgical History: Joint Replacement, Orthopedic Surgery, Tubal Ligation Past Psychological History: Anxiety, Bipolar, Depression Smoking Status: Never smoker Past Alcohol Use History: None Reported Past Drug Use History: None Reported General Exam - General Exam Comments Initial Comments: General: The patient is awake and alert, in no distress, and does not appear acutely ill. Eye: +3 mm pupils are equal, round and reactive to light, extra-ocular movements are intact. No nystagmus. There is normal conjunctiva bilaterally. No signs of icterus. Ears, nose, mouth and throat: There are moist mucous membranes and no oral lesions. No raccoon or Chaparro sign Neck: The neck is supple, there is no tenderness or JVD. No midline tenderness to palpation of the cervical spine, there is right-sided paravertebral tenderness extends over the anterior right shoulder. Patient is palpable muscle tension. Cardiovascular: There is a regular rate and rhythm. No murmur, rub or gallop is appreciated. Respiratory: Lungs are clear to auscultation, respirations are non-labored, breath sounds are equal. No wheezes, stridor, rales, or rhonchi. Gastrointestinal: Soft, non-distended, non-tender abdomen without masses or organomegaly noted. There is no rebound or guarding present. Musculoskeletal: Normal inspection of the cervical spine and shoulder. Patient is able to fully range at the right shoulder with forward flexion, hyperextension internal/external rotation. Patient does complain of motion with max range of motion. Patient has no limitations, full strength 5. Patient is able to make the okay fierce cross thumbs-up finger opposition and extension at the wrist bilaterally. Ulnar median and radial nerve. Intact. Compartments soft and compressible. Patient is no tenderness to palpation of the wrist or elbow. Small contusion of the right hip mostly lateral right thigh. She is able to fully range at the lower extremities equal and comparison bilaterally with 5 out of 5 strength, no limitations in range of motion no shortening or internal rotation noted. No evidence of foot drop. Radial and DP pulses equal in comparison bilaterally. Capillary refill less than 2 seconds. Neurological: A&O x 3. CN II-XII intact, There are no obvious motor or sensory deficits. Coordination appears grossly intact. Speech is normal. Finger-nose quicken coordinated, no pronator drift. No gait ataxia. Skin: Skin is warm and dry and no rashes or lesions are noted. Psychiatric: Cooperative, appropriate mood & affect, normal judgment. Limitations: no limitations Course Vital Signs 11/01/18 11/01/18 16:08 17:28 Temperature 98.2 F 98 F Pulse Rate 77 67 Respiratory 18 20 Rate Blood Pressure 118/54 95/60 O2 Sat by Pulse 96 99 Oximetry Medical Decision Making - Medical Decision Making Well-appearing 58-year-old female presented for follow-up. Patient is not on anticoagulants. Patient denies any significant head trauma. Patient denies any headache dizziness or loss of consciousness. No focal neurological deficits. Patient has mostly right-sided paravertebral tenderness of the cervical spine, there is no evidence of midline tenderness. No midline tenderness to palpation of the thoracic or lumbar spine. Patient neurovascularly intact. Hip has full range of motion, there are small contusion otherwise normal examination. X-ray negative for acute osseous process. Imaging studies of the C-spine & shoulder also have no acute osseous process. Patient given instruction to follow-up outpatient primary care provider. Patient is to follow-up with orthopedist surgery if symptoms persist. Patient verbalizes understanding. At this time to feel patient is stable for discharge with outpatient follow-up. Return parameters were discussed at length the patient who verbalized understanding. Denies questions at this time. I discussed the case attending provider Dr. Qiu who is agreeable with plan and discharge. Pt given flexeril for muscle spasm, was educated on the proper administration as well as wrist involvement use prior to patient's discharge. She verbalized understanding. Disposition Clinical Impression: Fall due to ice or snow, Neck strain, Shoulder strain, Contusion, hip Disposition: HOME SELF-CARE Condition: Good Instructions (If sedation given, give patient instructions): Cervical Strain ( ED), Shoulder Sprain (ED) Additional Instructions: Please use medication as discussed. Please follow-up with family doctor in the next 2 days. Please return to emergency room if the symptoms increase or worsen or for any other concerns. Is patient prescribed a controlled substance at d/c from ED?: No Referrals: [facility] [Primary Care Provider] - 1-2 days Time of Disposition: 17:12
[2018-11-01 17:30] VITALS: BP 95/60; PULSE 67; RESP 20; TEMP 98
== END 2018-11-01 17:30 | disposition home or self-care (01) ==
LOC: EC 16:00
DX: S16.1XXA Strain of muscle, fascia and tendon at neck level, initial encounter (principal); S46.911A Strain of unspecified muscle, fascia and tendon at shoulder and upper arm level, right arm, initial encounter; S70.01XA Contusion of right hip, initial encounter; F41.9 Anxiety disorder, unspecified; F32.9 Major depressive disorder, single episode, unspecified; Z96.89 Presence of other specified functional implants; Z79.899 Other long term (current) drug therapy; Z88.5 Allergy status to narcotic agent; Z91.011 Allergy to milk products; Z88.0 Allergy status to penicillin; Z88.2 Allergy status to sulfonamides; W00.0XXA Fall on same level due to ice and snow, initial encounter; Y92.481 Parking lot as the place of occurrence of the external cause; Y93.89 Activity, other specified
CPT/HCPCS: 72050; 73502; 99283

== ENCOUNTER → 2018-11-21 | Outpatient (CLI) | payer OTHER ==
[2018-11-21 13:36] LABS: Basophils # (A) 0.1 k/uL (0-0.2); Basophils % (A) 1 %; Eosinophils # (A) 0.2 k/uL (0-0.7); Eosinophils % (A) 4 %; HCT 44.3 % (34.0-46.0); HGB 14.3 gm/dL (11.4-16.0); Lymphocytes % (A) 30 %; MCH 29.1 pg (25.0-35.0); MCHC 32.3 g/dL (31.0-37.0); MCV 90.1 fL (80.0-100.0); Mean Platelet Volume 6.6; Monocytes # (A) 0.4 k/uL (0-1.0); Monocytes % (A) 6 %; Neutrophils # (A) 3.8 k/uL (1.3-7.7); Neutrophils % (A) 57 %; Platelet Count 250 k/uL (150-450); RBC 4.91 m/uL (3.80-5.40); RDW 14.7 % (11.5-15.5); WBC 6.7 k/uL (3.8-10.6)
[2018-11-21 19:00] LABS: Albumin 4.1 g/dL (3.80-4.90); Anion Gap 6.1 mmol/L (4.00-12.00); Calcium 9.2 mg/dL (8.7-10.3); Carbon Dioxide 30.9 mmol/L (21.6-31.8); Potassium 4.1 mmol/L (3.5-5.5)
[2018-11-21 21:52] LABS: Hemoglobin A1C 5.6 % (4.0-6.0)
== END | disposition home or self-care (01) ==
LOC: LAB 12:57
PROVIDERS: ATTEND Orthopaedic Surgery
DX: Z01.818 Encounter for other preprocedural examination (principal); Z01.812 Encounter for preprocedural laboratory examination
CPT/HCPCS: 36415; 80048; 82040; 83036; 85025; 87070; 93005

== ENCOUNTER 2019-06-24 06:59 | Day surgery (SDC) | payer MEDICARE, OTHER ==
[2019-06-23 08:38] VITALS: BMI 32.1
[~2019-06-24 06:59] MED LIST changes: -CLINDAMYCIN 900 MG in DEXTROSE 5% IN WATER 50 ML IVPB ONE; -HEPARIN SODIUM,PORCINE 5,000 UNIT/ML 1 ML VIAL SQ ONE; +LACTATED RINGERS 1,000 ML IV SCH; +LIDOCAINE 1% 20 ML VIAL (10MG/ML) FOR IV START INTRADERMA PRN; -Pre Op ABX Message 1 EACH MISC MISCELLANE ONE
[2019-06-24] MEDS ORDERED: LACTATED RINGERS 1,000 ML IV ONE (07:08)
[2019-06-24 07:19] VITALS: TEMP 98.2
[2019-06-24] MEDS ORDERED: fentaNYL (PF) 50 MCG/ML 2 ML AMP ONE (07:28)
[2019-06-24] MEDS ORDERED: MIDAZOLAM 2 MG/2 ML VIAL ONE (07:28)
[2019-06-24] MEDS ORDERED: PROPOFOL 10 MG/ML 20 ML VIAL IV ONE (07:28)
--- NOTE | 2019-06-24 08:14 | P.PCN ---
Date of Procedure: 06/24/19 Description of Procedure: BRIEF HISTORY: Pleasant 58-year-old female presenting for elective outpatient colonoscopy for evaluation of symptoms of change in bowel habits and diarrhea. She reports chronic diarrhea over the past year. Last colonoscopy approximately 3 years ago normal per her recollection. She does report a family history of colon cancer in her mother. PROCEDURE PERFORMED: Colonoscopy with biopsy. PREOPERATIVE DIAGNOSIS: Diarrhea, altered bowel habits, last colonoscopy 3 years ago. ESTIMATED BLOOD LOSS: Minimal. IV sedation per Anesthesia. PROCEDURE: After informed consent was obtained, the patient, was brought into the endoscopy unit. IV sedation was administered by Anesthesia under continuous monitoring. Digital rectal examination was normal. Initially the Olympus CF-190 flexible video colonoscope was then inserted in the rectum, gradually advanced into the cecum without any difficulty. Careful examination was performed as the scope was gradually being withdrawn. Ileocecal valve and the appendiceal orifice were visualized and appeared normal. The terminal ileum was intubated and appeared normal with biopsies taken. Prep was excellent. Mucosa of the cecum, ascending colon, transverse colon, descending colon, sigmoid colon, and rectum appeared normal, with biopsies of the right and left colon taken. Retroflexion was performed in the rectum and no lesions were seen, mild internal hemorrhoids and skin tags noted. The patient tolerated the procedure well. IMPRESSION: Normal-appearing colon from rectum to cecum, and normal-appearing terminal ileum with biopsies of the right colon, left colon and terminal ileum taken. RECOMMENDATIONS: Findings of this examination were discussed with the patient and her friend. Okay to resume diet and medications. Await pathology from biopsies. Follow up with gastroenterology as previously scheduled for results of biopsies.
[2019-06-24 08:25] VITALS: BP 121/58; PULSE 69; RESP 18
== END 2019-06-24 08:41 | disposition home or self-care (01) ==
LOC: ORWHC2ENDO 06:59
PROVIDERS: ATTEND Internal Medicine
DX: K64.8 Other hemorrhoids (principal); K64.4 Residual hemorrhoidal skin tags; K63.9 Disease of intestine, unspecified; K21.9 Gastro-esophageal reflux disease without esophagitis; K52.9 Noninfective gastroenteritis and colitis, unspecified; R19.4 Change in bowel habit; Z80.0 Family history of malignant neoplasm of digestive organs; Z96.653 Presence of artificial knee joint, bilateral; Z98.51 Tubal ligation status; F32.9 Major depressive disorder, single episode, unspecified; Z79.899 Other long term (current) drug therapy; Z88.5 Allergy status to narcotic agent; Z88.0 Allergy status to penicillin; Z88.2 Allergy status to sulfonamides; Z91.011 Allergy to milk products
CPT/HCPCS: 88305; 45380; J2250; J3010; J2704

== ENCOUNTER → 2019-07-14 | Outpatient (CLI) | payer MEDICARE, OTHER ==
[2019-07-14 13:45] LABS: Basophils % (A) 1 %; Eosinophils # (A) 0.1 k/uL (0-0.7); Eosinophils % (A) 1 %; HCT 41.3 % (34.0-46.0); HGB 13.4 gm/dL (11.4-16.0); Lymphocytes # (A) 1.6 k/uL (1.0-4.8); Lymphocytes % (A) 22 %; MCH 29.2 pg (25.0-35.0); MCHC 32.5 g/dL (31.0-37.0); MCV 89.8 fL (80.0-100.0); Mean Platelet Volume 6.9; Monocytes # (A) 0.4 k/uL (0-1.0); Monocytes % (A) 6 %; Neutrophils % (A) 70 %; Platelet Count 252 k/uL (150-450); RDW 14.1 % (11.5-15.5); WBC 7.2 k/uL (3.8-10.6)
[2019-07-14 15:31] LABS: Erythrocyte Sedimentation Rate 8 mm/hr (0-20)
[2019-07-14 22:05] LABS: Gliadin AB IgA, Deaminated NEGATIVE (NEGATIVE); Gliadin AB IgA, Unit <0.2 U/mL; Gliadin AB IgG, Deaminated NEGATIVE (NEGATIVE)
== END | disposition home or self-care (01) ==
LOC: LABWHC1 12:16
PROVIDERS: ATTEND Nurse Practitioner
DX: R19.7 Diarrhea, unspecified (principal)
CPT/HCPCS: 36415; 83516; 85025; 85652

== ENCOUNTER 2020-06-14 19:44 | Observation (INO) | payer OTHER, MEDICARE ==
[2020-06-14 19:52] LABS: Glucose,Whole Blood 100 mg/dL (75-99)
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
[2020-06-14 20:08] LABS: Basophils # (A) 0.1 k/uL (0-0.2); Basophils % (A) 1 %; Eosinophils # (A) 0.2 k/uL (0-0.7); Eosinophils % (A) 2 %; HCT 45.8 % (34.0-46.0); HGB 15.3 gm/dL (11.4-16.0); Lymphocytes # (A) 2.9 k/uL (1.0-4.8); Lymphocytes % (A) 32 %; MCH 29.8 pg (25.0-35.0); MCHC 33.5 g/dL (31.0-37.0); MCV 88.9 fL (80.0-100.0); Mean Platelet Volume 7.3; Monocytes # (A) 0.5 k/uL (0-1.0); Monocytes % (A) 5 %; Neutrophils # (A) 5.4 k/uL (1.3-7.7); Neutrophils % (A) 58 %; Platelet Count 217 k/uL (150-450); RBC 5.15 m/uL (3.80-5.40); RDW 14.3 % (11.5-15.5); WBC 9.2 k/uL (3.8-10.6)
[2020-06-14 20:21] LABS: ALT 21 U/L (4-34); AST 34 U/L (14-36); African American GFR (CKD) >90 (>60 ml/min/1.73 sqM); Albumin 3.3 g/dL (3.5-5.0); Alcohol <10 mg/dL; Alkaline Phosphatase 116 U/L (38-126); Anion Gap 5 mmol/L; Blood Urea Nitrogen 19 mg/dL (7-17); Calcium 8.7 mg/dL (8.4-10.2); Carbon Dioxide 29 mmol/L (22-30); Chloride 105 mmol/L (98-107); Glucose 107 mg/dL (74-99); Non-African American GFR(CKD) 82 (>60 ml/min/1.73 sqM); Potassium 3.9 mmol/L (3.5-5.1); Sodium 139 mmol/L (137-145); Total Bilirubin 0.3 mg/dL (0.2-1.3); Total Protein 5.7 g/dL (6.3-8.2)
[2020-06-14 20:24] LABS: Partial Thromboplastin Time 20.6 sec (22.0-30.0)
[2020-06-14] MEDS ORDERED: MORPHINE SULFATE 4 MG/ML SYRINGE IV STA ×2 (20:39→21:54)
[2020-06-14] MEDS ORDERED: LIDOCAINE 5% PATCH TOPICAL STA (20:39)
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
[2020-06-14] MEDS ORDERED: LIDOCAINE 1%-EPI 1:100,000 20 ML VIAL SQ STA (20:46)
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
--- NOTE | 2020-06-14 21:18 | XR ---
EXAMINATION TYPE: XR foot complete RT DATE OF EXAM: 06/14/2020 COMPARISON: 01/30/2017 HISTORY: Pain TECHNIQUE: 3 views FINDINGS: There is an Achilles calcaneal spur. Metatarsals appear intact. There is some thickening of the proximal phalanx of the little toe related to old healed fracture. I see no acute fracture. Ther e is multiple hammertoe deformity. IMPRESSION: Calcaneal spurring. No acute fracture seen.
--- NOTE | 2020-06-14 21:19 | XR ---
EXAMINATION TYPE: XR shoulder complete RT DATE OF EXAM: 06/14/2020 COMPARISON: 11/01/2018 HISTORY: Pain. TECHNIQUE: 3 views FINDINGS: I see no fracture nor dislocation. Glenohumeral joint is intact. Soft tissues appear normal . There are no pathologic calcifications. IMPRESSION: Negative right shoulder exam. No change.
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
[2020-06-14] MEDS ORDERED: MECLIZINE 12.5 MG TAB PO STA (21:48)
[2020-06-14] MEDS ORDERED: DIPH,PERTUS(ACELL)TETVAC-LF 0.5 ML VIAL IM ONE (21:50)
[2020-06-14] MEDS ORDERED: METOCLOPRAMIDE 5 MG/ML 2 ML VIAL IVP STA (21:50)
[2020-06-14] MEDS ORDERED: SODIUM CHLORIDE 0.9% 1,000 ML IV STA (21:50)
[2020-06-14] MEDS ORDERED: NALOXONE 0.4 MG/ML 1 ML VIAL IV PRN (22:51)
[2020-06-14] MEDS ORDERED: ACETAMINOPHEN TAB 325 MG TAB PO PRN (22:51)
[2020-06-14] MEDS ORDERED: ONDANSETRON 4 MG/2 ML VIAL IVP PRN (22:51)
[2020-06-15] MEDS: oxyCODONE-APAP 5-325MG 1 EACH TAB PO PRN ×2 (02:12→15:18)
[2020-06-15 02:35] LABS: Appearance,Urine Clear (Clear); Bilirubin,Urine Negative (Negative); Blood,Urine Trace (Negative); Color,Urine Yellow; Glucose,Urine (UA) Negative (Negative); Ketones,Urine Negative (Negative); Leukocyte Esterase,Urine Moderate (Negative); Nitrite,Urine Negative (Negative); PH, Urine 5.5 (5.0-8.0); Protein,Urine Negative (Negative); RBC,Urine 3 /hpf (0-5); Squamous Epithelial Cell,Urine 1 /hpf (0-4); Urobilinogen,Urine <2.0 mg/dL (<2.0); WBC,Urine 4 /hpf (0-5)
[2020-06-15 02:36] LABS: Amphetamine Screen,Urine Not Detected (NotDetected); Barbiturate Screen,Urine Not Detected (NotDetected); Benzodiazepines Screen,Urine Not Detected (NotDetected); Cocaine Screen,Urine Not Detected (NotDetected); Methadone Screen, Urine Not Detected (NotDetected); Opiate Screen,Urine Detected (NotDetected); Oxycodone Screen, Urine Not Detected (NotDetected); Phencyclidine Screen,Urine Not Detected (NotDetected); Tricyclic Antidepressant,Urine Not Detected (NotDetected); Urn Cannabinoid Scrn Not Detected (NotDetected)
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
[2020-06-15] MEDS ORDERED: MECLIZINE 25 MG TAB PO PRN (09:36)
[2020-06-15] MEDS: VENLAFAXINE HCL ER 150 MG CAP PO SCH (09:58)
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
--- NOTE | 2020-06-15 14:25 | CT ---
EXAMINATION TYPE: CT brain wo con DATE OF EXAM: 06/15/2020 COMPARISON: 06/14/2020 INDICATION: Concussion, postconcussive syndrome DLP: 1099.4 mGycm, Automated exposure control for dose reduction was used. CONTRAST: None CT of the brain is performed utilizing 3 mm thick sections through the posterior fossa and 3 mm thick sections through the remaining calvarium. Study is performed within 24 hours of arrival to the hosp [facility]. No abnormal hyperdensity is present to suggest an acute intracranial hemorrhage. No mass lesion is evident. No acute infarcts are evident. Ventricles and sulci are appropriate for the patient age. Paranasal sinuses and mastoid air cells within the [id number] are clear. IMPRESSIONS: 1. No acute or subacute intracranial changes.
[2020-06-15] MEDS ORDERED: traZODone HCL 100 MG TAB PO SCH (21:00)
[2020-06-16] MEDS ORDERED: LEVOTHYROXINE 50 MCG TAB PO SCH (06:30)
[2020-06-16 08:33] VITALS: BP 117/55; PULSE 59; RESP 16; TEMP 98.5
[2020-06-16] MEDS: VENLAFAXINE HCL ER 150 MG CAP PO SCH (08:41)
[2020-06-16] MEDS: oxyCODONE-APAP 5-325MG 1 EACH TAB PO PRN (08:41)
[2020-06-16] MEDS ORDERED: FAMOTIDINE 20 MG TAB PO SCH (09:00)
[2020-06-16] MEDS ORDERED: LORATADINE 10 MG TAB PO SCH (09:00)
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
== END 2020-06-16 18:20 | disposition home or self-care (01) ==
LOC: EC 19:44 → 1SOBS 22:52
PROVIDERS: ADMIT Surgery; ATTEND Surgery
DX: G44.319 Acute post-traumatic headache, not intractable (principal); F07.81 Postconcussional syndrome; S01.01XA Laceration without foreign body of scalp, initial encounter; V09.9XXA Pedestrian injured in unspecified transport accident, initial encounter; E03.9 Hypothyroidism, unspecified; M25.512 Pain in left shoulder; M25.511 Pain in right shoulder; E66.9 Obesity, unspecified; Z68.31 Body mass index [BMI] 31.0-31.9, adult; K21.9 Gastro-esophageal reflux disease without esophagitis; F60.3 Borderline personality disorder; E55.9 Vitamin D deficiency, unspecified; M77.31 Calcaneal spur, right foot; Z79.899 Other long term (current) drug therapy; S90.31XA Contusion of right foot, initial encounter; V03.10XA Pedestrian on foot injured in collision with car, pick-up truck or van in traffic accident, initial encounter; J45.909 Unspecified asthma, uncomplicated; Z98.51 Tubal ligation status; Z96.653 Presence of artificial knee joint, bilateral; F41.9 Anxiety disorder, unspecified; Z80.0 Family history of malignant neoplasm of digestive organs; Z79.890 Hormone replacement therapy; Z88.0 Allergy status to penicillin; Z88.2 Allergy status to sulfonamides; Z91.011 Allergy to milk products; F41.1 Generalized anxiety disorder; F33.9 Major depressive disorder, recurrent, unspecified; Y92.410 Unspecified street and highway as the place of occurrence of the external cause
CPT/HCPCS: 96376; 12034; 90471; 96361; 96374; 96375; 99285; 36415; 93005; 97161; 97535; 97166; 86900; 86901; 80053; 84484; 85025; 85610; 85730; 86850; 81001; 80306; 80320; 72170; 73030 ×2; 73630; 71045; 72125; 70450 ×2; 71260; 74177; 90715; G0378 ×3; J2270; J2765; Q9967

== ENCOUNTER 2020-07-06 00:41 | Emergency (ER) | payer MEDICARE, OTHER ==
[2020-07-06 00:56] VITALS: RESP 18
[2020-07-06] MEDS ORDERED: SODIUM CHLORIDE 0.9% 1,000 ML IV STA (01:01)
[2020-07-06 01:16] LABS: Basophils # (A) 0.1 k/uL (0-0.2); Basophils % (A) 1 %; Eosinophils # (A) 0.3 k/uL (0-0.7); Eosinophils % (A) 3 %; HCT 38.3 % (34.0-46.0); HGB 13.3 gm/dL (11.4-16.0); Lymphocytes % (A) 20 %; MCH 31.6 pg (25.0-35.0); MCHC 34.8 g/dL (31.0-37.0); MCV 90.7 fL (80.0-100.0); Mean Platelet Volume 7.5; Monocytes # (A) 0.5 k/uL (0-1.0); Monocytes % (A) 5 %; Neutrophils # (A) 6.9 k/uL (1.3-7.7); Neutrophils % (A) 70 %; Platelet Count 215 k/uL (150-450); RBC 4.22 m/uL (3.80-5.40); RDW 14.3 % (11.5-15.5); WBC 9.8 k/uL (3.8-10.6)
[2020-07-06 01:28] LABS: ALT 17 U/L (4-34); AST 31 U/L (14-36); African American GFR (CKD) >90 (>60 ml/min/1.73 sqM); Albumin 3.2 g/dL (3.5-5.0); Alkaline Phosphatase 117 U/L (38-126); Anion Gap 5 mmol/L; Blood Urea Nitrogen 14 mg/dL (7-17); Calcium 8.5 mg/dL (8.4-10.2); Carbon Dioxide 29 mmol/L (22-30); Chloride 102 mmol/L (98-107); Glucose 142 mg/dL (74-99); Magnesium 1.6 mg/dL (1.6-2.3); Non-African American GFR(CKD) >90 (>60 ml/min/1.73 sqM); Potassium 3.7 mmol/L (3.5-5.1); Sodium 136 mmol/L (137-145); Total Bilirubin 0.3 mg/dL (0.2-1.3); Total Protein 6.1 g/dL (6.3-8.2)
--- NOTE | 2020-07-06 01:40 | XR ---
EXAM: XR Chest, 2 Views CLINICAL HISTORY: ITS.REASON XR Reason: Chest Pain TECHNIQUE: Frontal and lateral views of the chest. COMPARISON: June 14, 2020 FINDINGS: Lungs: Lung volumes are moderate. There is slight hazy increased density in the right perihilar region, increased since previous. Pleural space: Unremarkable. No pneumothorax. Heart: The cardiac silhouette is mildly enlarged. Mediastinum: Unremarkable. 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 Upper abdomen: No pneumoperitoneum under the diaphragm. IMPRESSION: Mild right perihilar atelectasis or infiltrate, new since previous. Mild cardiomegaly without clear evidence of CHF. Moderate osteophytosis throughout the thoracic spine, similar to previous.
--- NOTE | 2020-07-06 02:16 | ED ---
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 Pain began at rest is worse with deep inspiration or palpation. Pain is sharp in nature. Pain is not associated with any shortness of breath diaphoresis or lightheadedness. Pain does not radiate. Pain began after eating. - Related Data Home Medications Medication Instructions Recorded Confirmed Venlafaxine HCl ER [Effexor XR] 150 mg PO DAILY 12/12/14 06/15/20 traZODone HCL [Desyrel] 100 mg PO HS 12/12/14 06/15/20 Loratadine [Claritin] 10 mg PO DAILY 11/18/17 06/15/20 Cholecalciferol [Vitamin D3 (25 5,000 unit PO DAILY 03/14/18 06/15/20 Mcg = 1000 Iu)] Famotidine [Pepcid] 20 mg PO DAILY 06/14/20 06/15/20 Levothyroxine Sodium [Synthroid] 50 mcg PO DAILY 06/14/20 06/15/20 Previous Rx's Medication Instructions Recorded Meclizine [Antivert] 25 mg PO TID PRN #30 tab 06/16/20 oxyCODONE-APAP 5-325MG [Percocet 1 each PO Q4HR PRN #18 tab 06/16/20 5-325 mg] Allergies Allergy/AdvReac Type Severity Reaction Status Date / Time meperidine [From Demerol] Allergy Unknown Verified 07/06/20 00:56 Milk Containing Products Allergy Nausea & Verified 07/06/20 00:56 [Dairy] Vomiting & Diarrhea Penicillins Allergy Unknown Verified 07/06/20 00:56 sulfamethoxazole Allergy Unknown Verified 07/06/20 00:56 [From Bactrim] trimethoprim [From Bactrim] Allergy Unknown Verified 07/06/20 00:56 gluten AdvReac Abdominal Verified 07/06/20 00:56 Pain Review of Systems ROS Statement: Those systems with pertinent positive or pertinent negative responses have been documented in the HPI. ROS Other: All systems not noted in ROS Statement are negative. EKG Findings - EKG Comments: EKG Findings:: ANABELLE was obtained due to complaint of chest pain, EKG obtained at 12:47 AM, rate is 57 rhythm is sinus bradycardia there is a normal axis, normal intervals, there is no acute ST elevations or depressions no evidence of acute ischemia or infarction. Past Medical History Past Medical History: Asthma, GERD/Reflux Additional Past Medical History / Comment(s): states no rx for asthma, prev rx for cholesterol, none currently History of Any Multi-Drug Resistant Organisms: None Reported Past Surgical History: Joint Replacement, Orthopedic Surgery, Tubal Ligation Additional Past Surgical History / Comment(s): glen knee replaced x2, left shoulder rotator cuff, colonoscopy Past Anesthesia/Blood Transfusion Reactions: Previous Problems w/ Anesthesia Additional Past Anesthesia/Blood Transfusion Reaction / Comment(s): "didn't wake up for 3 days" after knee replacement Past Psychological History: Anxiety, Depression Smoking Status: Never smoker Past Alcohol Use History: None Reported Past Drug Use History: None Reported - Past Family History Mother Family Medical History: Cancer Additional Family Medical History / Comment(s): colon General Exam - General Exam Comments Initial Comments: Physical Exam GENERAL: Patient is well-developed and well-nourished. Patient is nontoxic and well-hydrated and is in no distress. HENT: Normocephalic, Atraumatic. EYES: PERRL, EOMI PULMONARY: Unlabored respirations. CARDIOVASCULAR: Bradycardic regular Tenderness to palpation of the chest wall ABDOMEN: Soft and nontender with normal bowel sounds. No tenderness to palpation SKIN: Skin is clear with no lesions or rashes and otherwise unremarkable. : Deferred NEUROLOGIC: Patient is alert and oriented x3. Moving all extremities spontaneously MUSCULOSKELETAL: Normal extremities with adequate strength and full range of motion. No lower extremity swelling or edema. No calf tenderness. PSYCHIATRIC: Normal psychiatric evaluation. Limitations: no limitations Course Vital Signs 07/06/20 07/06/20 07/06/20 00:51 00:55 01:00 Temperature 97.8 F Pulse Rate 61 59 L Pulse Rate [ 55 L Gas Generator Operator ] Respiratory 18 18 18 Rate Blood Pressure 88/47 94/51 O2 Sat by Pulse 97 100 Oximetry 07/06/20 07/06/20 07/06/20 01:30 02:00 02:39 Temperature Pulse Rate 59 L 63 58 L Pulse Rate [ Gas Generator Operator ] Respiratory 18 18 18 Rate Blood Pressure 102/80 98/49 101/56 O2 Sat by Pulse 100 100 98 Oximetry 07/06/20 05:39 Temperature 98.2 F Pulse Rate 67 Pulse Rate [ Gas Generator Operator ] Respiratory 18 Rate Blood Pressure 99/47 O2 Sat by Pulse 99 Oximetry Chest Pain MDM - MDM patient was seen and evaluated, history is obtained from the patient Patient presenting to the ER via ambulance with sternal chest pain, no associated lightheadedness, diaphoresis or shortness of breath Pain is reproducible on exam Patient was hypotensive on arrival however she had received nitro in route to the hospital EKG is nonischemic Chest x-ray unremarkable Labs were obtained, CT imaging of the chest was obtained due to moderate risk for PE given that the patient had recent immobilization of the foot and ankle Initial labs were relatively unremarkable aside from mildly elevated d-dimer CT imaging with no acute findings patient sleeping comfortably in the emergency department, repeat troponin was obtained at 3 hours and was again negative These results were discussed with patient, discussed high suspicion for musculoskeletal cause of her chest pain. Recommended supportive care. All questions pertaining care were answered return parameters were discussed patient was discharged home in stable condition. - Wells Criteria Clinical Symptoms of DVT: (0) No No Alternative Diagnosis: (0) No Immobilization of Surgery in Previous 4 Weeks: (0) No Previous DVT/PE: (0) No Hemoptysis: (0) No Malignancy: (0) No - PERC Rule g: (0) No No Prior History pf DVT/PE: (0) No No Recent Trauma or Surgery: (0) No Hemoptysis: (0) No No Exogenous Estrogen: (0) No No Clinical Signs Suggesting DVT: (0) No Disposition Clinical Impression: Atypical chest pain Disposition: HOME SELF-CARE Condition: Stable Instructions (If sedation given, give patient instructions): Chest Pain (ED), Costochondritis (ED) Is patient prescribed a controlled substance at d/c from ED?: No Referrals: [facility] [Primary Care Provider] - 1-2 days
[2020-07-06 02:26] LABS: D-Dimer 2.85 mg/L FEU (<0.60)
--- NOTE | 2020-07-06 02:41 | CT ---
EXAM: CT Angiography Chest With Intravenous Contrast CLINICAL HISTORY: ITS.REASON CT Reason: pleuritic chest pain, current foot fractur TECHNIQUE: Axial computed tomographic angiography images of the chest with intravenous contrast. CTDI is 21.27 mGy and DLP is 336.7 mGy-cm. This CT exam was performed using one or more of the following dose reduction techniques: automated exposure control, adjustment of the mA and/or kV according to patient size, and/or use of iterative reconstruction technique. MIP reconstructed images were created and reviewed. COMPARISON: No relevant prior studies available. FINDINGS: Pulmonary arteries: The pulmonary arterial tree is well-opacified with contrast. No pulmonary emboli are identified. Aorta: The thoracic aorta is nondilated. There is no aneurysm or dissection. Lungs: The lungs are well inflated. There is a small amount subsegmental atelectasis in the right costophrenic angle. No mass. Pleural space: Unremarkable. No significant effusion. No pneumothorax. Heart: The heart is mildly enlarged. No pericardial effusion is seen. No evidence of RV dysfunction. Bones/joints: Moderate osteophytosis in the mid to lower thoracic spine. No acute fracture or subluxation is seen. Soft tissues: Unremarkable. Lymph nodes: Unremarkable. No enlarged lymph nodes. IMPRESSION: No evidence of pulmonary embolism or acute aortic abnormality. Small amount of atelectasis in the right costophrenic angle. Mild cardiomegaly without evidence of CHF. Moderate osteophytosis in the lower thoracic spine.
[2020-07-06 03:00] LABS: INR 0.9 (<1.2); Prothrombin Time 9.5 sec (9.0-12.0)
[2020-07-06 05:54] VITALS: BP 99/47; PULSE 67; TEMP 98.2
== END 2020-07-06 05:39 | disposition home or self-care (01) ==
LOC: EC 00:41
DX: R07.89 Other chest pain (principal); R00.1 Bradycardia, unspecified; F41.9 Anxiety disorder, unspecified; F32.9 Major depressive disorder, single episode, unspecified; Z96.653 Presence of artificial knee joint, bilateral; K21.9 Gastro-esophageal reflux disease without esophagitis; Z79.899 Other long term (current) drug therapy; Z88.0 Allergy status to penicillin; Z88.1 Allergy status to other antibiotic agents; Z88.2 Allergy status to sulfonamides; Z88.5 Allergy status to narcotic agent; Z91.011 Allergy to milk products; Z91.018 Allergy to other foods
CPT/HCPCS: 36415; 93005; 85379; 83880; 80053; 83735; 84484; 85025; 85610; 85730; 71046; 71275; 99285; Q9967

== ENCOUNTER → 2020-07-07 | Outpatient (CLI) | payer MEDICARE, OTHER ==
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
== END | disposition home or self-care (01) ==
LOC: RADCTMAIN 08:18
PROVIDERS: ATTEND Orthopaedic Surgery
DX: M25.571 Pain in right ankle and joints of right foot (principal); Z88.2 Allergy status to sulfonamides; Z88.0 Allergy status to penicillin; Z88.5 Allergy status to narcotic agent

== ENCOUNTER 2020-09-23 10:52 | Emergency (ER) | payer MEDICARE, OTHER ==
[2020-09-23] MEDS ORDERED: MECLIZINE 12.5 MG TAB PO STA (11:26)
[2020-09-23] MEDS ORDERED: SODIUM CHLORIDE 0.9% 1,000 ML IV STA (11:26)
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
[2020-09-23 11:52] LABS: Basophils # (A) 0.1 k/uL (0-0.2); Basophils % (A) 1 %; Eosinophils # (A) 0.2 k/uL (0-0.7); Eosinophils % (A) 2 %; HCT 46.2 % (34.0-46.0); HGB 15.7 gm/dL (11.4-16.0); Lymphocytes # (A) 1.5 k/uL (1.0-4.8); Lymphocytes % (A) 20 %; MCHC 33.9 g/dL (31.0-37.0); MCV 88.4 fL (80.0-100.0); Monocytes # (A) 0.4 k/uL (0-1.0); Monocytes % (A) 5 %; Neutrophils # (A) 5.4 k/uL (1.3-7.7); Neutrophils % (A) 72 %; Platelet Count 253 k/uL (150-450); RBC 5.22 m/uL (3.80-5.40); WBC 7.5 k/uL (3.8-10.6)
[2020-09-23 12:03] LABS: ALT 30 U/L (4-34); AST 41 U/L (14-36); African American GFR (CKD) >90 (>60 ml/min/1.73 sqM); Albumin 3.8 g/dL (3.5-5.0); Alkaline Phosphatase 105 U/L (38-126); Anion Gap 5 mmol/L; Blood Urea Nitrogen 23 mg/dL (7-17); Calcium 9.4 mg/dL (8.4-10.2); Carbon Dioxide 29 mmol/L (22-30); Chloride 106 mmol/L (98-107); Glucose 74 mg/dL (74-99); Non-African American GFR(CKD) >90 (>60 ml/min/1.73 sqM); Potassium 4.2 mmol/L (3.5-5.1); Sodium 140 mmol/L (137-145); Total Bilirubin 0.4 mg/dL (0.2-1.3); Total Protein 6.2 g/dL (6.3-8.2)
[2020-09-23 12:13] LABS: INR 0.9 (<1.2); Prothrombin Time 9.8 sec (9.0-12.0)
[2020-09-23 12:28] LABS: Appearance,Urine Clear (Clear); Bacteria,Urine Rare /hpf; Bilirubin,Urine Negative (Negative); Blood,Urine Trace (Negative); Color,Urine Yellow; Glucose,Urine (UA) Negative (Negative); Ketones,Urine Negative (Negative); Leukocyte Esterase,Urine Trace (Negative); Mucus,Urine Rare /hpf; Nitrite,Urine Negative (Negative); PH, Urine 5.5 (5.0-8.0); Protein,Urine Trace (Negative); RBC,Urine 9 /hpf (0-5); Specific Gravity,Urine 1.029 (1.001-1.035); Squamous Epithelial Cell,Urine 4 /hpf (0-4); Urobilinogen,Urine <2.0 mg/dL (<2.0); WBC,Urine 1 /hpf (0-5)
[2020-09-23 12:29] LABS: Amphetamine Screen,Urine Not Detected (NotDetected); Barbiturate Screen,Urine Not Detected (NotDetected); Benzodiazepines Screen,Urine Not Detected (NotDetected); Cocaine Screen,Urine Not Detected (NotDetected); Methadone Screen, Urine Not Detected (NotDetected); Opiate Screen,Urine Not Detected (NotDetected); Oxycodone Screen, Urine Not Detected (NotDetected); Phencyclidine Screen,Urine Not Detected (NotDetected); Tricyclic Antidepressant,Urine Not Detected (NotDetected); Urn Cannabinoid Scrn Not Detected (NotDetected)
--- NOTE | 2020-09-23 12:58 | CT ---
EXAMINATION TYPE: CT brain cspine wo con DATE OF EXAM: 09/23/2020 COMPARISON: Brain 06/15/2020 HISTORY: 60-year-old female Headache and dizziness. CT DLP: 1291 mGycm Automated exposure control for dose reduction was used. Technique: Examination of the head was done in axial plane without intravenous contrast. Coronal and sagittal reconstructions performed. CT of the cervical spine was obtained in axial plane without intravenous injection of contrast mater ial. Coronal and sagittal reformatted images were obtained from the axial views for evaluation of f ractures, spinal alignment and canal. FINDINGS: Head: There is no evidence of acute intracranial hemorrhage, acute ischemic changes, mass, mass-effect, or extra-axial fluid collection. There is no effacement of cerebral sulci or basal subarachnoid cister ns. There is no hydrocephalus. There is no midline shift. Seth-white matter distinction is preserv ed. Partially empty sella. Paranasal sinuses and mastoid air cells are well pneumatized. Orbits and globes are intact. Cervical spine: No craniocervical junction abnormality, predental space widening, or prevertebral soft tissue swellin g. Mild degenerative change at the C1 dens articulation. Moderate distention plate degenerative change at C5-C6 with disc osteophyte complex mildly narrowing the spinal canal at this level. Alignment is maintained. No acute fracture of the cervical spine. Degenerative change at the right TMJ. Mild uncovertebral joint arthropathy lower cervical spine. Sagittal and coronal reformatted images confirm above findings. COMBINED IMPRESSION: 1. No acute intracranial abnormality seen. 2. No acute fracture or malalignment of the cervical spine. Moderate degenerative disc disease C5-C6 with mild narrowing of the spinal canal at this level.
[2020-09-23 12:59] VITALS: RESP 20
--- NOTE | 2020-09-23 13:05 | CT ---
EXAMINATION TYPE: CT angio head neck DATE OF EXAM: 09/23/2020 COMPARISON: CT brain same day. Also, CT chest 07/06/2020 HISTORY: 60-year-old female Headache and dizziness. TECHNIQUE: Contiguous axial scanning of the head and neck performed with IV Contrast, patient injecte d with 65 mL of Isovue 370. Coronal/sagittal MIP reconstructions performed. 3-D reconstructions gener ated on a dedicated independent workstation. CT DLP: 462 mGycm Automated exposure control for dose reduction was used. FINDINGS: NECK: A 9 mm AP window lymph node is decreased in size from 07/06/2020. Bovine configuration to the aortic arch. The vertebral arteries are codominant and patent throughout the course. The right common and internal carotid arteries are widely patent. The left common and internal carotid arteries are widely patent. Mild atherosclerotic calcification a t the origin of the left external carotid artery. HEAD: The vertebral and basilar arteries as well as the remainder of the posterior circulation is patent. Bilateral posterior indicating arteries are visualized. Mild apical scarring calcifications within the carotid siphons. Internal carotid arteries are patent as is the remainder of the anterior circulation. No aneurysmal change is seen. IMPRESSION: NECK: 1. BOVINE CONFIGURATION TO THE AORTIC ARCH. 2. WIDELY PATENT CAROTID AND VERTEBRAL ARTERIES OF THE NECK. HEAD: 3. NO EVIDENCE FOR INTRACRANIAL ARTERIAL OCCLUSION, SIGNIFICANT STENOSIS, OR ANEURYSMAL CHANGE.
[2020-09-23] MEDS ORDERED: KETOROLAC 15 MG/ML 1 ML VIAL IVP STA (13:21)
[2020-09-23 13:57] VITALS: BP 114/89; PULSE 73; TEMP 98.3
== END 2020-09-23 13:59 | disposition home or self-care (01) ==
LOC: EC 10:52
DX: R42 Dizziness and giddiness (principal); F07.81 Postconcussional syndrome; F41.9 Anxiety disorder, unspecified; F32.9 Major depressive disorder, single episode, unspecified; K21.9 Gastro-esophageal reflux disease without esophagitis; Z79.899 Other long term (current) drug therapy; Z88.0 Allergy status to penicillin; Z88.1 Allergy status to other antibiotic agents; Z88.2 Allergy status to sulfonamides; Z88.5 Allergy status to narcotic agent; Z91.011 Allergy to milk products; Z96.653 Presence of artificial knee joint, bilateral
CPT/HCPCS: 36415; 93005; 80053; 84484; 85025; 85610; 81001; 80306; 72125; 70496; 70450; 70498; 99284; 96374; 96361; J1885; Q9967

== ENCOUNTER 2020-10-14 15:19 | Emergency (ER) | payer MEDICARE, OTHER ==
[2020-10-14 15:42] VITALS: BP 120/78; PULSE 69; RESP 18; TEMP 98.5
[2020-10-14] MEDS ORDERED: MECLIZINE 12.5 MG TAB PO STA (16:37)
--- NOTE | 2020-10-14 17:12 | CT ---
EXAMINATION TYPE: CT brain xenia lara con DATE OF EXAM: 10/14/2020 COMPARISON: 09/23/2020. HISTORY: Dizziness with fall. Posterior head injury. CT DLP: 1349 mGycm Automated exposure control for dose reduction was used. TECHNIQUE: CT scan of the head and cervical spine are performed without contrast. FINDINGS: There is no acute intracranial hemorrhage, mass effect, or midline shift identified. The ventricles and sulci are within normal limits in size. The globes are intact and the visualized sin uses are clear. Cervical spine is visualized in its entirety from C1 through upper thoracic levels and demonstrates s atisfactory alignment without evidence of acute fracture or dislocation. Prevertebral soft tissue ap pears within normal limits. The C1-C2 articulation is unremarkable. Moderate to severe C5-C6 spondy losis. IMPRESSION: 1. There is no acute fracture or dislocation evident in the cervical spine. 2. No acute intracranial hemorrhage, mass effect, or midline shift is seen.
--- NOTE | 2020-10-14 17:25 | ED ---
Fall HPI - General Chief Complaint: Fall Stated Complaint: Fall head injury Time Seen by Provider: 10/14/20 16:15 Source: patient Mode of arrival: wheelchair - History of Present Illness Initial Comments: 60-year-old female presents to the emergency department with a chief complaint of a fall. Patient has history of vertigo and takes Antivert but did not take it this morning. States she was undergoing physical therapy when she felt dizzy, and fell to the ground. States she had her head and occipital region on an object as she went down. She did not lose consciousness. Denies any blood thinners. States she has laceration to occipital region of her head but the bleeding has resolved. Denies any significant pain. Does report mild tenderness in bilateral paraspinal region of the cervical spine. Denies one- sided weakness or paresthesias, blurry vision, gait instability. - Related Data Home Medications Medication Instructions Recorded Confirmed Venlafaxine HCl ER [Effexor XR] 150 mg PO DAILY 12/12/14 10/14/20 traZODone HCL [Desyrel] 100 mg PO HS 12/12/14 10/14/20 Cholecalciferol [Vitamin D3 (25 5,000 unit PO DAILY 03/14/18 10/14/20 Mcg = 1000 Iu)] Famotidine [Pepcid] 20 mg PO DAILY 06/14/20 10/14/20 Levothyroxine Sodium [Synthroid] 50 mcg PO DAILY 06/14/20 10/14/20 Meloxicam [Mobic] 15 mg PO DAILY 09/23/20 10/14/20 Allergies Allergy/AdvReac Type Severity Reaction Status Date / Time meperidine [From Demerol] Allergy Unknown Verified 10/14/20 17:00 Milk Containing Products Allergy Nausea & Verified 10/14/20 17:00 [Dairy] Vomiting & Diarrhea Penicillins Allergy Unknown Verified 10/14/20 17:00 sulfamethoxazole Allergy Unknown Verified 10/14/20 17:00 [From Bactrim] trimethoprim [From Bactrim] Allergy Unknown Verified 10/14/20 17:00 gluten AdvReac Abdominal Verified 10/14/20 17:00 Pain Review of Systems ROS Statement: Those systems with pertinent positive or pertinent negative responses have been documented in the HPI. ROS Other: All systems not noted in ROS Statement are negative. Past Medical History Past Medical History: Asthma, GERD/Reflux Additional Past Medical History / Comment(s): states no rx for asthma, prev rx for cholesterol, none currently History of Any Multi-Drug Resistant Organisms: None Reported Past Surgical History: Joint Replacement, Orthopedic Surgery, Tubal Ligation Additional Past Surgical History / Comment(s): glen knee replaced x2, left shoulder rotator cuff, colonoscopy Past Anesthesia/Blood Transfusion Reactions: Previous Problems w/ Anesthesia Additional Past Anesthesia/Blood Transfusion Reaction / Comment(s): "didn't wake up for 3 days" after knee replacement Past Psychological History: Anxiety, Depression Smoking Status: Never smoker Past Alcohol Use History: None Reported Past Drug Use History: None Reported - Past Family History Mother Family Medical History: Cancer Additional Family Medical History / Comment(s): colon General Exam Limitations: no limitations General appearance: alert, in no apparent distress Head exam: Present: atraumatic, normocephalic. Absent: normal inspection (2 cm laceration on the occipital region of the head.), other (negative Chaparro sign, raccoon eyes, hemotympanum.) Eye exam: Present: normal appearance, PERRL, EOMI Pupils: Present: normal accommodation ENT exam: Present: normal exam, normal oropharynx, mucous membranes moist Neck exam: Present: normal inspection, full ROM. Absent: tenderness Respiratory exam: Present: normal lung sounds bilaterally. Absent: respiratory distress Cardiovascular Exam: Present: regular rate, normal rhythm, normal heart sounds GI/Abdominal exam: Present: soft. Absent: distended, tenderness, guarding, rebound Extremities exam: Present: normal inspection, full ROM, normal capillary refill. Absent: tenderness, pedal edema, joint swelling Back exam: Present: normal inspection, full ROM. Absent: tenderness, CVA tenderness (R), CVA tenderness (L) Neurological exam: Present: alert, oriented X3, CN II-XII intact, normal gait, reflexes normal Psychiatric exam: Present: normal affect, normal mood Skin exam: Present: warm, dry, intact, normal color Course Vital Signs 10/14/20 15:37 Temperature 98.5 F Pulse Rate 69 Respiratory 18 Rate Blood Pressure 120/78 O2 Sat by Pulse 100 Oximetry Procedures - Laceration Laceration #1 Consent Obtained: verbal consent Indication: laceration Site: scalp Size (cm): 2 Description: linear, clean Depth: simple, single layer Sedation/Analgesia: none Pre-repair: irrigated extensively Type of Sutures: other ([place]) Size of Sutures: other ([place]) Number of Sutures: 4 Technique: simple, interrupted Patient Tolerated Procedure: well, no complications Medical Decision Making - Medical Decision Making 60-year-old female with history of vertigo presents to the emergency department with chief complaint of a fall. On physical examination patient has a superficial laceration measuring approximately 2 cm in length in the occipital region of the head. This was repaired with 4 eduar after thorough irrigation. Brain and C-spine CT shows no acute findings. Patient was also given Antivert and she feels better. EKG showing sinus rhythm. Return parameters discussed the patient was understanding and agreeable. Case discussed with physician. - EKG Data EKG Comments: sinus rhythm, ventricular rate 64, AK 152, QRS 80, QTC 408. Disposition Clinical Impression: Fall, Head injury, Laceration Disposition: HOME SELF-CARE Condition: Stable Instructions (If sedation given, give patient instructions): Laceration (DC), Staple Care (ED) Additional Instructions: Please return to the emergency room in 7 days to have sutures removed. Please watch for any signs of infection which may include increased pain, swelling, redness, fever or chills. Please return to emergency room for any signs of infection do occur. Please use clean soap and water over the area to prevent scabbing over your stitches. Please leave wound covered for the first 24-48 hours and then leave wound open to air. Please return to the emergency room for any other concerns. Is patient prescribed a controlled substance at d/c from ED?: No Referrals: [facility] [Primary Care Provider] - 1-2 days Time of Disposition: 17:44
== END 2020-10-14 18:31 | disposition home or self-care (01) ==
LOC: EC 15:19
DX: S01.01XA Laceration without foreign body of scalp, initial encounter (principal); K21.9 Gastro-esophageal reflux disease without esophagitis; F32.9 Major depressive disorder, single episode, unspecified; F41.9 Anxiety disorder, unspecified; Z79.899 Other long term (current) drug therapy; Z79.890 Hormone replacement therapy; Z79.1 Long term (current) use of non-steroidal anti-inflammatories (NSAID); Z88.0 Allergy status to penicillin; Z88.2 Allergy status to sulfonamides; Z91.048 Other nonmedicinal substance allergy status; Z91.011 Allergy to milk products; Z88.1 Allergy status to other antibiotic agents; Z88.5 Allergy status to narcotic agent; Z96.653 Presence of artificial knee joint, bilateral; W18.09XA Striking against other object with subsequent fall, initial encounter
CPT/HCPCS: 12001; 70450; 72125; 93005; 99283

== ENCOUNTER 2020-11-23 10:10 | Emergency (ER) | payer MEDICARE, OTHER ==
[2020-11-23 10:21] VITALS: BP 126/63; PULSE 97; RESP 16; TEMP 98
[2020-11-23] MEDS ORDERED: ACETAMINOPHEN TAB 325 MG TAB PO STA (10:44)
--- NOTE | 2020-11-23 10:44 | ED ---
Fall HPI - General Chief Complaint: Fall Stated Complaint: shoulder pain Time Seen by Provider: 11/23/20 10:25 Source: patient Mode of arrival: ambulatory - History of Present Illness Initial Comments: 60-year-old female presents to emergency department with a chief complaint of a fall. Patient reports incident occurred last night while she was moving. Patient reports a mechanical fall while she was bending forward, she felt mostly on her right shoulder. Patient reports limited range of motion with abduction above 90. She denies any numbness or tingling. She has rotator cuff injury on that shoulder previously without repair. She denies taking medications to be the symptoms. Pain is alleviated at rest. Denies any head injury, loss of consciousness of blood thinners. She has no other complaints. - Related Data Home Medications Medication Instructions Recorded Confirmed Venlafaxine HCl ER [Effexor XR] 150 mg PO DAILY 12/12/14 11/23/20 traZODone HCL [Desyrel] 100 mg PO HS 12/12/14 11/23/20 Cholecalciferol [Vitamin D3 (25 5,000 unit PO DAILY 03/14/18 11/23/20 Mcg = 1000 Iu)] Famotidine [Pepcid] 20 mg PO DAILY 06/14/20 11/23/20 Levothyroxine Sodium [Synthroid] 50 mcg PO DAILY 06/14/20 11/23/20 Meloxicam [Mobic] 15 mg PO DAILY 09/23/20 11/23/20 Ibuprofen [Motrin] 800 mg PO Q12H PRN 11/23/20 11/23/20 Allergies Allergy/AdvReac Type Severity Reaction Status Date / Time meperidine [From Demerol] Allergy Unknown Verified 11/23/20 10:49 Milk Containing Products Allergy Nausea & Verified 11/23/20 10:49 [Dairy] Vomiting & Diarrhea Penicillins Allergy Unknown Verified 11/23/20 10:49 sulfamethoxazole Allergy Unknown Verified 11/23/20 10:49 [From Bactrim] trimethoprim [From Bactrim] Allergy Unknown Verified 11/23/20 10:49 gluten AdvReac Abdominal Verified 11/23/20 10:49 Pain Review of Systems ROS Statement: Those systems with pertinent positive or pertinent negative responses have been documented in the HPI. ROS Other: All systems not noted in ROS Statement are negative. Past Medical History Past Medical History: Asthma, GERD/Reflux Additional Past Medical History / Comment(s): states no rx for asthma, prev rx for cholesterol, none currently History of Any Multi-Drug Resistant Organisms: None Reported Past Surgical History: Joint Replacement, Orthopedic Surgery, Tubal Ligation Additional Past Surgical History / Comment(s): glen knee replaced x2, left shoulder rotator cuff, colonoscopy Past Anesthesia/Blood Transfusion Reactions: Previous Problems w/ Anesthesia Additional Past Anesthesia/Blood Transfusion Reaction / Comment(s): "didn't wake up for 3 days" after knee replacement Past Psychological History: Anxiety, Depression Smoking Status: Never smoker Past Alcohol Use History: None Reported Past Drug Use History: None Reported - Past Family History Mother Family Medical History: Cancer Additional Family Medical History / Comment(s): colon General Exam Limitations: no limitations General appearance: alert, in no apparent distress Head exam: Present: atraumatic, normocephalic, normal inspection Eye exam: Present: normal appearance, PERRL, EOMI Pupils: Present: normal accommodation ENT exam: Present: normal exam, normal oropharynx, mucous membranes moist, TM's normal bilaterally, normal external ear exam Neck exam: Present: normal inspection, full ROM. Absent: tenderness Respiratory exam: Present: normal lung sounds bilaterally. Absent: respiratory distress Cardiovascular Exam: Present: regular rate, normal rhythm, normal heart sounds Extremities exam: Present: normal inspection, tenderness (Anterior lateral right deltoid tenderness), normal capillary refill, other (Palpable ulnar and radial pulses bilaterally.). Absent: full ROM (Limited range of motion with abduction above 90 and right shoulder. Positive empty can test. Positive Blackburn test.), pedal edema, joint swelling, calf tenderness Back exam: Present: normal inspection, full ROM. Absent: tenderness Neurological exam: Present: alert, oriented X3, normal gait Psychiatric exam: Present: normal affect, normal mood Skin exam: Present: warm, dry, intact, normal color Course Vital Signs 11/23/20 10:19 Temperature 98.0 F Pulse Rate 97 Respiratory 16 Rate Blood Pressure 126/63 O2 Sat by Pulse 98 Oximetry Medical Decision Making - Medical Decision Making 60-year-old female presents to the emergency department with a chief complaint of a fall shoulder pain. On physical examination, anterior lateral tenderness of the deltoid along with a positive Blackburn an empty can test. I do suspect a possible rotator cuff injury. There is no head injury or loss of consciousness. X-ray reveals possible separation of the AC joint. Sling will be applied. Patient was given Tylenol per her request. Patient was advised to follow with activities specialist. Strict return parameters were thoroughly discussed the patient was am sending and agreeable. Case discussed with Dr. Joseph. Disposition Clinical Impression: Fall, Acromioclavicular joint injury, Right shoulder injury Disposition: HOME SELF-CARE Condition: Stable Instructions (If sedation given, give patient instructions): Rotator Cuff Injury (ED) Additional Instructions: Follow-up with activities specialist. Alternate between Tylenol or Motrin for pain control. Return to emergency department if symptoms worsen. Is patient prescribed a controlled substance at d/c from ED?: No Referrals: [facility] [Primary Care Provider] - 1-2 days Time of Disposition: 11:37
--- NOTE | 2020-11-23 11:15 | XR ---
Right shoulder HISTORY: Trauma and pain Correlation to right shoulder 06/14/2020 There is superior displacement of the distal clavicle in relation to the acromion. Bone mineralizatio n and joint spaces otherwise maintained. Thoracic spondylosis is present. No evident fracture. IMPRESSION: Correlate for possible acromioclavicular separation.
== END 2020-11-23 12:15 | disposition home or self-care (01) ==
LOC: EC 10:10
DX: S49.91XA Unspecified injury of right shoulder and upper arm, initial encounter (principal); J45.909 Unspecified asthma, uncomplicated; K21.9 Gastro-esophageal reflux disease without esophagitis; F41.9 Anxiety disorder, unspecified; F32.9 Major depressive disorder, single episode, unspecified; Z88.0 Allergy status to penicillin; W18.30XA Fall on same level, unspecified, initial encounter
CPT/HCPCS: 99284

== ENCOUNTER → 2022-02-15 | Outpatient (CLI) | payer MEDICARE, OTHER ==
[2022-02-15 18:12] LABS: T4, Free (Free Thyroxine) 1.08 ng/dL (0.800-1.800)
== END | disposition home or self-care (01) ==
LOC: LABWHC1 13:18
PROVIDERS: ATTEND Psychiatry & Neurology Neurology
DX: E03.9 Hypothyroidism, unspecified (principal)
CPT/HCPCS: 36415; 84439; 84443; 84481

== ENCOUNTER → 2022-02-27 | Outpatient (CLI) | payer MEDICARE, OTHER ==
--- NOTE | 2022-02-27 12:26 | US ---
EXAMINATION TYPE: US carotid duplex BILAT DATE OF EXAM: 02/27/2022 COMPARISON: NONE CLINICAL HISTORY: R42 Dizziness. Dizziness EXAM MEASUREMENTS: RIGHT: Peak Systolic Velocity (PSV) cm/sec ----- Right CCA: 57.4 ----- Right ICA: 57.4 ----- Right ECA: 67.3 ICA/CCA ratio: 1.0 RIGHT: End Diastole cm/sec ----- Right CCA: 17.5 ----- Right ICA: 26.8 ----- Right ECA: 9.0 LEFT: Peak Systolic Velocity (PSV) cm/sec ----- Left CCA: 74.7 ----- Left ICA: 71.2 ----- Left ECA: 64.5 ICA/CCA ratio: 1.0 LEFT: End Diastole cm/sec ----- Left CCA: 25.8 ----- Left ICA: 30.2 ----- Left ECA: 9.0 VERTEBRALS (direction of flow): Right Vertebral: Antegrade Left Vertebral: Antegrade Rhythm: Normal Intimal thickening is present through the right common carotid system. Mild plaquing and intimal thic kening is present within the left carotid system. No significant stenosis seen IMPRESSION: No significant flow-limiting stenosis based on velocities Criteria for Assigning % of Stenosis / Diameter reduction (Estimation based on the indirect measurements of the internal carotid artery velocities (ICA PSV). 1. Normal (no stenosis)=ICA PSV < 125 cm/s: ratio < 2.0: ICA EDV<40 cm/s. 2. Less than 50% stenosis=ICA PSV < 125 cm/s: ratio < 2.0: ICA EDV<40 cm/s. 3. 50 to 69% stenosis=ICA PSV of 125 to 230 cm/s: ration 2.0 ? 4.0: ICA EDV 40-100 cm/s. 4. Greater than 70% stenosis to near occlusion= ICA PSV > 230 cm/s: ratio > 4.0: ICA EDV > 100 cm/s. 5. Near occlusion= ICA PSV velocities may be low or undetectable: variable ratio and ICA EDV. 6. Total occlusion=unable to detect flow.
== END | disposition home or self-care (01) ==
LOC: RADUSWWP 12:01
PROVIDERS: ATTEND Psychiatry & Neurology Neurology
DX: I65.23 Occlusion and stenosis of bilateral carotid arteries (principal)
CPT/HCPCS: 93880

== ENCOUNTER → 2023-05-23 | Outpatient (CLI) | payer MEDICARE, OTHER ==
--- NOTE | 2023-05-24 10:01 | MM ---
Reason for Exam: Screening (asymptomatic). Last mammogram was performed 3 year(s) and 6 month(s) ago. Patient History: Menarche at age 14. First Full-Term at age 30. Postmenopausal. Risk Values: Selina 5 year model risk: 1.6%. NCI Lifetime model risk: 7.9%. Prior Study Comparison: 04/20/2015 Bilateral Screening Mammogram, [facility]. 05/24/2016 Bilateral Screening Mammogram, [facility]. 07/31/2018 Bilateral Screening Mammogram, [facility]. 11/04/2019 Bilateral Screening Mammogram, [facility]. Tissue Density: The breast tissue is almost entirely fat. Findings: Analyzed By CAD. There is no suspicious group of microcalcifications or new suspicious mass in either breast. Benign-appearing calcifications. Overall Assessment: Benign, BI-RAD 2 Management: Screening Mammogram of both breasts in 1 year. . Patient should continue monthly self-breast exams. A clinical breast exam by your physician is recommended on an annual basis. This exam should not preclude additional follow-up of suspicious palpable abnormalities. Note on Selina scores and lifetime risk: 1. A Selina score greater than 3% is considered moderate risk. If this is the case, consider specialist referral to assess eligibility for a risk reducing agent. 2. If overall lifetime risk for the development of breast cancer is 20% or higher, the patient may qualify for future screening with alternating mammogram and breast MRI. Electronically signed and approved by: Librado Ivey M.D. Radiologis
== END | disposition home or self-care (01) ==
LOC: RADMAMWWP 10:55
PROVIDERS: ATTEND Family Medicine
DX: Z12.31 Encounter for screening mammogram for malignant neoplasm of breast (principal); Z78.0 Asymptomatic menopausal state
CPT/HCPCS: 77063; 77067

== ENCOUNTER 2023-06-19 18:23 | Observation (INO) | payer MEDICARE, OTHER ==
--- NOTE | 2023-06-19 18:57 | ED ---
Chest Pain HPI - General Source: RN notes reviewed <Desiree Jarquin - Last Filed: 06/19/23 18:54> <Yossi Garces - Last Filed: 06/19/23 23:40> - General Stated Complaint: abnormal labs Time Seen by Provider: 06/19/23 18:54 - History of Present Illness Initial Comments: Patient is a 62-year-old female who presents to the emergency department for chest pain. Patient reports chest pressure and shortness of breath which began about a month ago. States she had an EKG and blood work or her primary care provider's office this morning. Patient was told her EKG looked abnormal and was called tonight stating her lab results were abnormal as well but no specific details. Patient was advised to come to the emergency department. (Desiree Jarquin) Dictation was produced using [employer] dictation software. please excuse any grammatical, word or spelling errors. Chief Complaint: 62-year-old female presents emergency department for abnormal EKG History of Present Illness: 62-year-old female directed to emergency department for concerns of acute coronary syndrome secondary to chest pain, shortness of breath and abnormal EKG at PCPs office. Patient has no history of cardiac disease. Denies any history of hypertension diabetes or high cholesterol. She had EKG that appeared to be suspicious at primary care physician's office. She is to get blood work and was told to come to the ER. Patient states that she does not have any chest pain at the bedside but does have some shortness of breath. Denies any history of blood clots. No lower extremity symptoms. She does however feel short of breath. Denies any fever constitutional symptoms. The ROS documented in this emergency department record has been reviewed and confirmed by me. Those systems with pertinent positive or negative responses have been documented in the HPI. All other systems are other negative and/or noncontributory. (Yossi Garces) - Related Data Home Medications Medication Instructions Recorded Confirmed Venlafaxine HCl ER [Effexor XR] 150 mg PO DAILY 12/12/14 06/19/23 Levothyroxine Sodium [Synthroid] 50 mcg PO DAILY 06/14/20 06/19/23 Ibuprofen [Motrin] 800 mg PO Q12H PRN 11/23/20 06/19/23 ARIPiprazole [Abilify] 7.5 mg PO HS 06/19/23 06/19/23 Azithromycin [Zithromax Z Pack] See Taper PO DIRECTED 06/19/23 06/19/23 Cholecalciferol [Vitamin D3 (125 125 mcg PO DAILY 06/19/23 06/19/23 Mcg = 5000 Iu)] traZODone HCL [Desyrel] 50 mg PO HS 06/19/23 06/19/23 Allergies Allergy/AdvReac Type Severity Reaction Status Date / Time meperidine [From Demerol] Allergy Unknown Verified 06/19/23 22:46 Milk Containing Products Allergy Nausea & Verified 06/19/23 22:46 (Dairy) Vomiting & [Dairy] Diarrhea Penicillins Allergy Unknown Verified 06/19/23 22:46 Childhood sulfamethoxazole Allergy Rash/Hives Verified 06/19/23 22:46 [From Bactrim] trimethoprim [From Bactrim] Allergy Rash/Hives Verified 06/19/23 22:46 gluten AdvReac Abdominal Verified 06/19/23 22:46 Pain Review of Systems ROS Other: All systems not noted in ROS Statement are negative. <Desiree Jarquin - Last Filed: 06/19/23 18:54> ROS Other: All systems not noted in ROS Statement are negative. <Yossi Garces - Last Filed: 06/19/23 23:40> ROS Statement: Those systems with pertinent positive or pertinent negative responses have been documented in the HPI. Past Medical History Past Medical History: Asthma, GERD/Reflux Additional Past Medical History / Comment(s): states no rx for asthma, prev rx for cholesterol, none currently History of Any Multi-Drug Resistant Organisms: None Reported Past Surgical History: Joint Replacement, Orthopedic Surgery, Tubal Ligation Additional Past Surgical History / Comment(s): glen knee replaced x2, left shoulder rotator cuff, colonoscopy Past Anesthesia/Blood Transfusion Reactions: Previous Problems w/ Anesthesia Additional Past Anesthesia/Blood Transfusion Reaction / Comment(s): "didn't wake up for 3 days" after knee replacement Past Psychological History: Anxiety, Depression Smoking Status: Never smoker Past Alcohol Use History: None Reported Past Drug Use History: None Reported - Past Family History Mother Family Medical History: Cancer Additional Family Medical History / Comment(s): colon <Desiree Jarquin - Last Filed: 06/19/23 18:54> General Exam <MilkaPhucDesiree - Last Filed: 06/19/23 18:54> <Yossi Garces - Last Filed: 06/19/23 23:40> - General Exam Comments Initial Comments: Visual Physical Exam Vital signs reviewed General: Well-appearing, nontoxic, no acute distress. Head: Normocephalic, atraumatic Eyes: PERRLA, EOMI ENT: Airway patent Chest: Nonlabored breathing Skin: No visual rash, normal skin tone Neuro: Alert and oriented 3 Musculoskeletal: No gross abnormalities (Desiree Jarquin) PHYSICAL EXAM: General Impression: Alert and oriented x3, not in acute distress HEENT: Normocephalic atraumatic, extra-ocular movements intact, pupils equal and reactive to light bilaterally, mucous membranes moist. Cardiovascular: Heart regular rate and rhythm Chest: Able to complete full sentences, no retractions, no tachypnea Abdomen: abdomen soft, non-tender, non-distended, no organomegaly Musculoskeletal: Pulses present and equal in all extremities, no peripheral edema Motor: no focal deficits noted Neurological: CN II-XII grossly intact, no focal motor or sensory deficits noted Skin: Intact with no visualized rashes Psych: Normal affect and mood (Yossi Garces) Course <Yossi Garces - Last Filed: 06/19/23 23:40> Vital Signs 06/19/23 06/19/23 18:53 21:39 Temperature 97.9 F Pulse Rate 87 60 Respiratory 16 18 Rate Blood Pressure 134/66 124/62 O2 Sat by Pulse 95 99 Oximetry - Reevaluation(s) Reevaluation #1: 06/19/23 21:54 My EKG interpretation: Ventricular rate 74, sinus rhythm, VT interval 156, QRS 93, QTC 390. No VT prolongation, no QTC prolongation, no ST or T-wave changes noted. Overall, this EKG is unremarkable (Yossi Garces) Chest Pain MDM <Desiree Jarquin - Last Filed: 06/19/23 18:54> <Yossi Garces - Last Filed: 06/19/23 23:40> - MDM I performed the QuickNote portion of this chart - Desiree Jarquin PA-C (Desiree Jarquin) Was pt. sent in by a medical professional or institution (, [facility], [employer], urgent care, hospital, or senior living...) When possible be specific @ -No Did you speak to anyone other than the patient for history (EMS, parent, family, police, friend...)? What history was obtained from this source @ -No Did you review nursing and triage notes (agree or disagree)? Why? @ -I reviewed and agree with nursing and triage notes Were old charts reviewed (outside hosp., previous admission, EMS record, old EKG, old radiological studies, urgent care reports/EKG's, senior living records)? Report findings @ -No old charts were reviewed Differential Diagnosis (chest pain, altered mental status, abdominal pain women, abdominal pain men, vaginal bleeding, musculoskeletal, weakness, fever, dyspnea, syncope, headache, dizziness, GI bleed, back pain, seizure, CVA, palpatations, mental health)? @ -Differential Chest Pain: Stable Angina, Unstable Angina, STEMI, NSTEMI Aortic Dissection, Pneumothorax, Musculoskeletal, Esophageal Spasm GERD, Cholecystitis, Pancreatitis, Zoster, this is not meant to be an all-inclusive list. EKG interpreted by me (3pts min.). @ -See above X-rays interpreted by me (1pt min.). @ -Chest x-ray is unremarkable for acute processes CT interpreted by me (1pt min.). @ -None done U/S interpreted by me (1pt. min.). @ -None done What testing was considered but not performed or refused? (CT, X-rays, U/S, labs)? Why? @ -None What meds were considered but not given or refused? Why? @ -None Did you discuss the management of the patient with other professionals (professionals i.e. AK[facility] Torrez, [employer], lab, RT, psych nurse, social media marketing specialist, senior quality technician, teacher, state highway police officer, special education case manager)? Give summary @ -Case discussed with hospitalist for admission Was smoking cessation discussed for >3mins.? @ -No Was critical care preformed (if so, how long)? @ -No Were there social determinants of health that impacted care today? How? (Homelessness, low income, unemployed, alcoholism, drug addiction, transportation, low edu. Level, literacy, decrease access to med. care, care home, rehab)? @ -No Was there de-escalation of care discussed even if they declined (Discuss DNR or withdrawal of care, Hospice)? DNR status @ -No What co-morbidities impacted this encounter? (DM, HTN, Smoking, COPD, CAD, Cancer, CVA, ARF, Chemo, Hep., AIDS, mental health diagnosis, sleep apnea, morbid obesity)? @ -None Was patient admitted / discharged? Hospital course, mention meds given and route, prescriptions, significant lab abnormalities, going to OR and other pertinent info. @ -62-year-old female presents emergency department with atypical chest pain typical features and also shortness of breath. Vital signs upon arrival are within acceptable limits. Indications reviewed. She is not on any beta blockers. Patient well-appearing at the bedside. Physical examination is benign. Cardiac workup is negative. Patient has elevated d-dimer. CT angiography is negative for any acute processes Patient will be admitted to observation for cardiac monitoring and cardiology consultation. Undiagnosed new problem with uncertain prognosis? @ -No Drug Therapy requiring intensive monitoring for toxicity (Heparin, Nitro, Insulin, Cardizem)? @ -No Were any procedures done? @ -No Diagnosis/symptom? Acute, or Chronic, or Acute on Chronic? Uncomplicated (without systemic symptoms) or Complicated (systemic symptoms)? @ -Chest pain Side effects of treatment? @ -No Exacerbation, Progression, or Severe Exacerbation? @ -No Poses a threat to life or bodily function? How? (Chest pain, [place], [place], pneumonia, PE, COPD, DKA, ARF, appy, cholecystitis, CVA, Diverticulitis, Homicidal, Suic idal, threat to staff... and all critical care pts) @ -No (Yossi Garces) Disposition <Desiree Jarquin - Last Filed: 06/19/23 18:54> Decision Time: 23:40 <Yossi Garces - Last Filed: 06/19/23 23:40> Clinical Impression: Chest pain Disposition: ADMITTED IP TO THIS HOSP Condition: Fair Referrals: Librado Stevenson MD [Primary Care Provider] - 1-2 days
[2023-06-19 19:28] LABS: Basophils # (A) 0.1 k/uL (0-0.2); Basophils % (A) 1 %; Eosinophils # (A) 0.1 k/uL (0-0.7); Eosinophils % (A) 1 %; HCT 43.3 % (34.0-46.0); HGB 14.6 gm/dL (11.4-16.0); Lymphocytes # (A) 1.9 k/uL (1.0-4.8); Lymphocytes % (A) 22 %; MCH 29.9 pg (25.0-35.0); MCHC 33.8 g/dL (31.0-37.0); MCV 88.6 fL (80.0-100.0); Mean Platelet Volume 8.3; Monocytes # (A) 0.3 k/uL (0-1.0); Monocytes % (A) 4 %; Neutrophils # (A) 6.3 k/uL (1.3-7.7); Neutrophils % (A) 72 %; Platelet Count 218 k/uL (150-450); RBC 4.89 m/uL (3.80-5.40); RDW 14.2 % (11.5-15.5); WBC 8.8 k/uL (3.8-10.6)
[2023-06-19 19:33] LABS: INR 0.9 (<1.2); Partial Thromboplastin Time 22.3 sec (22.0-30.0); Prothrombin Time 10.3 sec (10.0-12.5)
--- NOTE | 2023-06-19 19:51 | XR ---
EXAMINATION TYPE: XR chest 2V DATE OF EXAM: 06/19/2023 COMPARISON: 07/06/2020 INDICATION: Chest pain TECHNIQUE: Frontal and lateral views of the chest are obtained. FINDINGS: The heart size is normal. The pulmonary vasculature is normal. The lungs are clear. Spondylosis through the thoracic spine. IMPRESSION: 1. No acute pulmonary process.
[2023-06-19 19:58] LABS: ALT 42 U/L (4-34); AST 46 U/L (14-36); African American GFR (CKD) >90 (>60 ml/min/1.73 sqM); Alkaline Phosphatase 118 U/L (38-126); Anion Gap 9 mmol/L; Blood Urea Nitrogen 14 mg/dL (7-17); Calcium 9.5 mg/dL (8.4-10.2); Carbon Dioxide 27 mmol/L (22-30); Chloride 103 mmol/L (98-107); Glucose 140 mg/dL (74-99); Lipase 75 U/L (23-300); Magnesium 1.7 mg/dL (1.6-2.3); Non-African American GFR(CKD) >90 (>60 ml/min/1.73 sqM); Potassium 4.2 mmol/L (3.5-5.1); Sodium 139 mmol/L (137-145); Total Bilirubin 0.5 mg/dL (0.2-1.3); Total Protein 7.2 g/dL (6.3-8.2)
[2023-06-19 20:05] LABS: NT-Pro-B-Type Natriuretic Pept <20 pg/mL
[2023-06-19] MEDS ORDERED: ASPIRIN 81 MG PO STA (21:55)
--- NOTE | 2023-06-19 23:20 | CT ---
EXAM: CT Angiography Chest With Intravenous Contrast CLINICAL HISTORY: ITS.REASON CT Reason: positive D-dimer TECHNIQUE: Axial computed tomographic angiography images of the chest with intravenous contrast. CTDI is 30.4 mGy and DLP is 507.6 mGy-cm. This CT exam was performed using one or more of the following dose reduction techniques: automated exposure control, adjustment of the mA and/or kV according to patient size, and/or use of iterative reconstruction technique. MIP reconstructed images were created and reviewed. COMPARISON: No relevant prior studies available. FINDINGS: LUNGS: No focal consolidation, pleural effusion, or pneumothorax. HEART: Cardiomegaly. VASCULATURE: No acute pulmonary embolism. Atherosclerotic changes of the aorta. THYROID: Within normal limits. MEDIASTINUM + LYMPH NODES: There are no pathologically enlarged mediastinal, hilar, or axillary lymph nodes. SUPERIOR ABDOMEN: Hepatic steatosis. Cholecystectomy. MUSCULOSKELETAL: Degenerative changes. IMPRESSION: No acute pulmonary embolism.
[2023-06-19] MEDS ORDERED: NITROGLYCERIN SL TABS 0.4 MG TAB SUBLINGUAL PRN (23:37)
[2023-06-20] MEDS ORDERED: SODIUM CHLORIDE 0.9% 1,000 ML IV SCH (06:30)
--- NOTE | 2023-06-20 06:32 | P.HPIM ---
History of Present Illness H&P Date: 06/20/23 Chief Complaint: chest pain 62 year old female no significant past medical history , coming in for chest pain she reports chest pain for the past 1 month , exercise induced she does workout home and every time she was started having chest pressure rated 5 out of 10 retrosternal sometimes radiates to the left shoulder not associated with any sweating nausea vomiting but she sometimes get dizzy and have palpitations. Pain usually resolves on its own with rest She denies any history of heart attacks she denies any history of stress test she has never had any cardiac workup denies any recent travel denies any active diagnoses of cancer denies any history of blood clots she denies any upper respiratory infection symptoms denies any coughing runny nose congestion fevers chills she denies any GI bleeding denies any abdominal pain denies any urinary or bowel habit changes She recently saw her doctor did some blood work and EKG and was notified that there was some abnormalities and she should go to the hospital for evaluation Patient denies tobacco smoking and illicit drugs or alcohol review of systems Pertinent positives as noted in HPI. All other systems were reviewed and are negative on exam Constitutional: No acute distress, conversant, pleasant Eyes: Anicteric sclerae, moist conjunctiva, Pupils equal round reactive to light ENMT: NC/AT Oropharynx clear, no erythema, or exudates Neck: Supple, no masses, or JVD No carotid bruits No thyromegaly Lungs: Clear to auscultation Clear to percussion Normal respiratory effort, no accessory muscle use Cardiovascular: Heart regular in rate and rhythm, No murmurs, gallops, or rubs No peripheral edema Abdominal: Soft Nontender, no guarding, rebound or rigidity Abdomen moving with respiration Normoactive bowel sounds No hepatomegaly, No splenomegaly No palpable mass No abdominal wall hernia noted Skin: Normal temperature, tone, texture, turgor No induration No subcutaneous nodules No rash, lesions No ulcers Extremities: No digital cyanosis No clubbing Pedal pulses intact and symmetrical Radial pulses intact and symmetrical No calf tenderness Psychiatric: Alert and oriented to person, place and time Appropriate affect fair judgement Neuro Muscles Strength 5/5 in all 4 extremities Sensation to light touch grossly present throughout Cranial nerves II-XII grossly intact Lymphatics: no palpable cervical or supraclavicular lymph nodes Assessment and plan 62-year-old female with no significant past medical history comes in with anginal symptoms I discussed the case with the ED doctor I accepted the admission for recurrent chest pain for cardiac workup to rule out acute coronary syndrome Chest pain with typical features Start patient on aspirin and statin Troponins negative 2 Blood work showing white count 8.8, hemoglobin 14.6 unremarkable D-dimer was slightly elevated 2.4, CTA of the chest showed no acute pulmonary embolism EKG showed normal sinus rhythm no acute ST changes Renal function unremarkable showing BUN 14 creatinine 0.6 sodium 139 potassium 4.2 Cardiac monitoring Monitor vital signs Nitro when necessary for chest pain Cardiology consult DVT prophylaxis heparin subcu 3 times a day Full code Past Medical History Past Medical History: Asthma, GERD/Reflux Additional Past Medical History / Comment(s): states no rx for asthma, prev rx for cholesterol, none currently History of Any Multi-Drug Resistant Organisms: None Reported Past Surgical History: Joint Replacement, Orthopedic Surgery, Tubal Ligation Additional Past Surgical History / Comment(s): glen knee replaced x2, left shoulder rotator cuff, colonoscopy Past Anesthesia/Blood Transfusion Reactions: Previous Problems w/ Anesthesia Additional Past Anesthesia/Blood Transfusion Reaction / Comment(s): "didn't wake up for 3 days" after knee replacement Past Psychological History: Anxiety, Depression Smoking Status: Never smoker Past Alcohol Use History: None Reported Past Drug Use History: None Reported - Past Family History Mother Family Medical History: Cancer Additional Family Medical History / Comment(s): colon Medications and Allergies Home Medications Medication Instructions Recorded Confirmed Type Venlafaxine HCl ER [Effexor XR] 150 mg PO DAILY 12/12/14 06/19/23 History Levothyroxine Sodium [Synthroid] 50 mcg PO DAILY 06/14/20 06/19/23 History Ibuprofen [Motrin] 800 mg PO Q12H PRN 11/23/20 06/19/23 History ARIPiprazole [Abilify] 7.5 mg PO HS 06/19/23 06/19/23 History Azithromycin [Zithromax Z Pack] See Taper PO DIRECTED 06/19/23 06/19/23 History Cholecalciferol [Vitamin D3 (125 125 mcg PO DAILY 06/19/23 06/19/23 History Mcg = 5000 Iu)] traZODone HCL [Desyrel] 50 mg PO HS 06/19/23 06/19/23 History Allergies Allergy/AdvReac Type Severity Reaction Status Date / Time meperidine [From Demerol] Allergy Unknown Verified 06/19/23 22:46 Milk Containing Products Allergy Nausea & Verified 06/19/23 22:46 (Dairy) Vomiting & [Dairy] Diarrhea Penicillins Allergy Unknown Verified 06/19/23 22:46 Childhood sulfamethoxazole Allergy Rash/Hives Verified 06/19/23 22:46 [From Bactrim] trimethoprim [From Bactrim] Allergy Rash/Hives Verified 06/19/23 22:46 gluten AdvReac Abdominal Verified 06/19/23 22:46 Pain Physical Exam Vitals: Vital Signs Temp Pulse Resp BP Pulse Ox 06/20/23 03:00 59 L 16 101/63 97 06/20/23 02:00 56 L 16 102/61 95 06/20/23 01:00 55 L 22 120/73 97 06/20/23 00:00 54 L 18 128/77 98 06/19/23 23:00 56 L 16 103/75 06/19/23 22:00 60 18 124/62 96 06/19/23 21:47 62 9 L 94 L 06/19/23 21:39 60 18 124/62 99 06/19/23 18:53 97.9 F 87 16 134/66 95 Intake and Output 06/19/23 06/19/23 06/20/23 14:59 22:59 06:59 Other: Weight 92.533 kg Results CBC & Chem 7: 06/19/23 19:08 06/19/23 19:08 Labs: Abnormal Lab Results - Last 24 Hours (Table) 06/19/23 06/19/23 Range/Units 19:08 19:08 D-Dimer 2.54 H (<0.60) mg/L FEU Glucose 140 H (74-99) mg/dL AST 46 H (14-36) U/L ALT 42 H (4-34) U/L
[2023-06-20] MEDS ORDERED: ASPIRIN 325 MG TAB PO SCH (09:00)
[2023-06-20] MEDS: ATORVASTATIN 40 MG TAB PO SCH (09:13)
[2023-06-20] MEDS: LEVOTHYROXINE 50 MCG TAB PO SCH (09:13)
[2023-06-20] MEDS: HEPARIN SODIUM,PORCINE 5,000 UNIT/ML 1 ML VIAL SQ SCH ×3 (09:13→19:53)
[2023-06-20] MEDS: VENLAFAXINE HCL ER 150 MG CAP PO SCH (10:28)
--- NOTE | 2023-06-20 10:32 | P.CRDCN ---
History of Present Illness Consult date: 06/20/23 Consult reason: chest pain History of present illness: History of present illness: This is a 62-year-old female with past medical history of hypothyroidism, dyslipidemia previously on Lipitor when seen by Dr. VC Ceja in 2016 for preop clearance for gallbladder surgery. Patient does not recall why she was taken off Lipitor. We have been asked to evaluate the patient for chest pain. Patient states that she has had shortness of breath for the past month and it became very severe yesterday. She states she woke up with shortness of breath and also developed chest pain in the epigastric area. Patient is seen today in the emergency center waiting for a bed on the observation unit. On no recent injury to her chest wall. EKG normal sinus rhythm with no acute ST-T wave changes Chest x-ray: No acute findings CTA of the chest negative for pulmonary embolism CBC normal. INR 0.9. D-dimer 2.54. Electrolytes and renal function normal. Glucose 140. Magnesium 1.7. AST 46, ALT 42. Alkaline phosphatase 118. Troponin negative 2. ProBNP less than 20. Lipase 75. Home cardiac medications: Levothyroxine 50 g daily Echocardiogram 2016 revealed normal LV size and function, left ventricular filling pattern suggest pericardial constriction. Trace mitral regurgitation, trace tricuspid regurgitation Lexiscan stress test in 2016 was suboptimal study EF 50-55%, EKG portion not suggestive of ischemia Review Of Systems: At the time of my evaluation: Constitutional: No fever, no chills. No weakness, fatigue or lethargy. EENT: No headache. No dizziness. Lungs: + shortness of breath, cough, no sputum production. No wheezing. Cardiovascular: + chest pain, no lower extremity edema. No palpitations. No paroxysmal nocturnal dyspnea. No orthopnea. No lightheadedness or dizziness. No syncopal episodes. Abdominal: No abdominal pain. No nausea, vomiting. No diarrhea. No constipation. No bloody or tarry stools. Musculoskeletal: No myalgias. No muscle weakness, no frequent falls. Integumentary: No wounds. No rash. No unusual bruising. Neurologic: No aphasia. No facial droop. No change in mentation. Physical examination: Gen: This is a 62-year-old female patient resting on ER stretcher and appears to be in no acute distress. VS: reviewed HEENT: Head is atraumatic, normocephalic. Pupils equal, round. Sclerae is anicteric. NECK: Supple. No JVD. . LUNGS: Clear to auscultation. No wheezes or rhonchi. No intercostal retractions. HEART: Regular rate and rhythm. No murmur. No chest wall tenderness ABDOMEN: Soft + epigastric tenderness. EXTREMITIES: No pedal edema. No calf tenderness. NEUROLOGICAL: Patient is awake, alert and oriented x3. Assessment: Chest pain, acute coronary syndrome ruled out Epigastric tenderness History of dyslipidemia Family history of premature coronary artery disease Plan: Start patient on Lipitor 40 mg daily Repeat one troponin Obtain A1c and lipid panel Obtain 2-D echocardiogram and Doppler study to assess cardiac structure and function If echocardiogram is unremarkable, patient is cleared for discharge with follow- up in the office with Dr. York in 2 weeks. Thank you kindly for this consultation. Nurse practitioner note has been reviewed, I agree with documented findings and plan of care. Patient was seen and examined. Past Medical History Past Medical History: Asthma, GERD/Reflux Additional Past Medical History / Comment(s): states no rx for asthma, prev rx for cholesterol, none currently History of Any Multi-Drug Resistant Organisms: None Reported Past Surgical History: Joint Replacement, Orthopedic Surgery, Tubal Ligation Additional Past Surgical History / Comment(s): glen knee replaced x2, left shoulder rotator cuff, colonoscopy Past Anesthesia/Blood Transfusion Reactions: Previous Problems w/ Anesthesia Additional Past Anesthesia/Blood Transfusion Reaction / Comment(s): "didn't wake up for 3 days" after knee replacement Past Psychological History: Anxiety, Depression Smoking Status: Never smoker Past Alcohol Use History: None Reported Past Drug Use History: None Reported - Past Family History Mother Family Medical History: Cancer Additional Family Medical History / Comment(s): colon Medications and Allergies Home Medications Medication Instructions Recorded Confirmed Type Venlafaxine HCl ER [Effexor XR] 150 mg PO DAILY 12/12/14 06/19/23 History Levothyroxine Sodium [Synthroid] 50 mcg PO DAILY 06/14/20 06/19/23 History Ibuprofen [Motrin] 800 mg PO Q12H PRN 11/23/20 06/19/23 History ARIPiprazole [Abilify] 7.5 mg PO HS 06/19/23 06/19/23 History Azithromycin [Zithromax Z Pack] See Taper PO DIRECTED 06/19/23 06/19/23 History Cholecalciferol [Vitamin D3 (125 125 mcg PO DAILY 06/19/23 06/19/23 History Mcg = 5000 Iu)] traZODone HCL [Desyrel] 50 mg PO HS 06/19/23 06/19/23 History Allergies Allergy/AdvReac Type Severity Reaction Status Date / Time meperidine [From Demerol] Allergy Unknown Verified 06/19/23 22:46 Milk Containing Products Allergy Nausea & Verified 06/19/23 22:46 (Dairy) Vomiting & [Dairy] Diarrhea Penicillins Allergy Unknown Verified 06/19/23 22:46 Childhood sulfamethoxazole Allergy Rash/Hives Verified 06/19/23 22:46 [From Bactrim] trimethoprim [From Bactrim] Allergy Rash/Hives Verified 06/19/23 22:46 gluten AdvReac Abdominal Verified 06/19/23 22:46 Pain Physical Exam Vitals: Vital Signs Temp Pulse Resp BP Pulse Ox 06/20/23 07:16 53 L 16 94/60 99 06/20/23 03:00 59 L 16 101/63 97 06/20/23 02:00 56 L 16 102/61 95 06/20/23 01:00 55 L 22 120/73 97 06/20/23 00:00 54 L 18 128/77 98 06/19/23 23:00 56 L 16 103/75 06/19/23 22:00 60 18 124/62 96 06/19/23 21:47 62 9 L 94 L 06/19/23 21:39 60 18 124/62 99 06/19/23 18:53 97.9 F 87 16 134/66 95 Intake and Output 06/19/23 06/20/23 06/20/23 22:59 06:59 14:59 Other: Weight 92.533 kg Results 06/19/23 19:08 06/19/23 19:08 Cardiac Enzymes 06/19/23 06/19/23 06/20/23 Range/Units 19:08 19:08 00:33 AST 46 H (14-36) U/L Troponin I <0.012 <0.012 (0.000-0.034) ng/mL Coagulation 06/19/23 Range/Units 19:08 PT 10.3 (10.0-12.5) sec APTT 22.3 (22.0-30.0) sec CBC 06/19/23 Range/Units 19:08 WBC 8.8 (3.8-10.6) k/uL RBC 4.89 (3.80-5.40) m/uL Hgb 14.6 (11.4-16.0) gm/dL Hct 43.3 (34.0-46.0) % Plt Count 218 (150-450) k/uL Comprehensive Metabolic Panel 06/19/23 Range/Units 19:08 Sodium 139 (137-145) mmol/L Potassium 4.2 (3.5-5.1) mmol/L Chloride 103 (98-107) mmol/L Carbon Dioxide 27 (22-30) mmol/L BUN 14 (7-17) mg/dL Creatinine 0.60 (0.52-1.04) mg/dL Glucose 140 H (74-99) mg/dL Calcium 9.5 (8.4-10.2) mg/dL AST 46 H (14-36) U/L ALT 42 H (4-34) U/L Alkaline Phosphatase 118 (38-126) U/L Total Protein 7.2 (6.3-8.2) g/dL Albumin 4.0 (3.5-5.0) g/dL Current Medications Generic Name Dose Route Start Last Admin Trade Name Freq PRN Reason Stop Dose Admin Aspirin 325 mg 06/20/23 09:00 Aspirin 325 Mg Tab PO DAILY [facility] Heparin Sodium (Porcine) 5,000 unit 06/20/23 08:00 Heparin Sodium,Porcine 5,000 Unit/Ml 1 Ml Vial SQ Q8HR [facility] Sodium Chloride 1,000 mls @ 75 mls/hr 06/20/23 06:30 Saline 0.9% IV .[id number] [facility] Levothyroxine Sodium 50 mcg 06/20/23 07:00 Levothyroxine 50 Mcg Tab PO DAILY@0630 [facility] Nitroglycerin 0.4 mg 06/19/23 23:37 Nitroglycerin Sl Tabs 0.4 Mg Tab SUBLINGUAL Q5M PRN Chest Pain Intake and Output 06/19/23 06/20/23 06/20/23 22:59 06:59 14:59 Other: Weight 92.533 kg 06/19/23 19:08 06/19/23 19:08
[2023-06-20 17:36] LABS: Chol/HDL Ratio 3.93 Ratio
[2023-06-20] MEDS ORDERED: ARIPiprazole 15 MG TAB PO SCH (21:00)
[2023-06-20] MEDS ORDERED: traZODone HCL 50 MG TAB PO SCH (21:00)
[2023-06-21] MEDS: LEVOTHYROXINE 50 MCG TAB PO SCH (06:43)
[2023-06-21 08:20] VITALS: BP 93/53; PULSE 58; RESP 16; TEMP 97.9
[2023-06-21] MEDS: VENLAFAXINE HCL ER 150 MG CAP PO SCH (08:36)
[2023-06-21] MEDS: HEPARIN SODIUM,PORCINE 5,000 UNIT/ML 1 ML VIAL SQ SCH (08:36)
[2023-06-21] MEDS: ATORVASTATIN 40 MG TAB PO SCH (08:36)
--- NOTE | 2023-06-21 08:45 | CA ---
Transthoracic Echo Report Name: Rissa Wadsworth Age: 62 Gender: F : 1960 Exam Date: 06/20/2023 12:14 Exam Location: [facility] Ht (in): 63 Wt (lb): 204 Ordering Physician: Carin Leal Attending/Referring Phys: [id number], Mel Drug Coordinator Babak Terrell Procedure CPT: Indications: LVF Cardiac Hx: Technical Quality: Technically difficult study Contrast 1: Lumason Total Dose (mL): 5 Contrast 2: Total Dose (mL): MEASUREMENTS (Male / Female) Normal Values 2D ECHO LV Diastolic Diameter PLAX 4.0 cm 4.2 - 5.9 / 3.9 - 5.3 cm LV Systolic Diameter PLAX 2.8 cm IVS Diastolic Thickness 0.7 cm 0.6 - 1.0 / 0.6 - 0.9 cm LVPW Diastolic Thickness 1.0 cm 0.6 - 1.0 / 0.6 - 0.9 cm LV Relative Wall Thickness 0.4 RV Internal Dim ED PLAX 3.0 cm LVOT Diameter 1.8 cm Aortic Root Diameter 2.9 cm LA Systolic Diameter LX 2.1 cm 3.0 - 4.0 / 2.7 - 3.8 cm LV Diastolic Volume MOD 4C 44.3 cm??? LV Systolic Volume MOD 4C 18.3 cm??? LV Ejection Fraction MOD 4C 58.7 % LV Cardiac Index MOD 4C 741.9 cm???/min???m??? LV Diastolic Length 4C 6.3 cm LV Systolic Length 4C 5.2 cm Ascending Aorta Diameter 2.9 cm DOPPLER AV Peak Velocity 130.1 cm/s AV Peak Gradient 6.8 mmHg LVOT Peak Velocity 89.8 cm/s LVOT Peak Gradient 3.2 mmHg LVOT Velocity Time Integral 21.1 cm LVOT Stroke Volume 52.9 cm??? LVOT Stroke Volume Index 27.1 ml/m??? LVOT Cardiac Index 1506.9 cm???/min???m??? AV Area Cont Eq pk 1.7 cm??? MV Peak Velocity 112.3 cm/s MV Peak Gradient 5.0 mmHg MV Mean Velocity 52.2 cm/s MV Mean Gradient 1.3 mmHg MV Velocity Time Integral 36.4 cm Mitral E Point Velocity 72.0 cm/s Mitral A Point Velocity 100.5 cm/s Mitral E to A Ratio 0.7 MV Deceleration Time 296.7 ms MV E' Velocity 5.7 cm/s Mitral E to MV E' Ratio 12.6 TR Peak Velocity 165.1 cm/s TR Peak Gradient 10.9 mmHg Right Ventricular Systolic Press 16.0 mmHg FINDINGS Left Ventricle Normal LV size and wall thickness. Left ventricular ejection fraction is estimated at 50-55 %. Right Ventricle Normal right ventricular size. Right Atrium Normal right atrial size. Left Atrium Normal left atrial size. Mitral Valve Structurally normal mitral valve. No mitral regurgitation. Aortic Valve Trileaflet aortic valve. No aortic valve stenosis or regurgitation. Tricuspid Valve Structurally normal tricuspid valve. Trace TR. Pulmonic Valve Pulmonic valve not well visualized. Mild PI. Pericardium Normal pericardium. Aorta Normal size aortic root and proximal ascending aorta. CONCLUSIONS Normal LV size and systolic function Previewed by: Dr. Osmany York MD (Electronically Signed) Final Date: 21 June 2023 08:44
[2023-06-21] MEDS ORDERED: ASPIRIN 81 MG PO SCH (09:00)
[2023-06-21] MEDS ORDERED: CHOLECALCIFEROL 125 MCG (5000 IU) TABLET PO SCH (09:00)
--- NOTE | 2023-06-21 09:30 | P.PN ---
Subjective Progress Note Date: 06/21/23 History of present illness: This is a 62-year-old female with past medical history of hypothyroidism, dysl ipidemia previously on Lipitor when seen by Dr. VC Ceja in 2016 for preop clearance for gallbladder surgery. Patient does not recall why she was taken off Lipitor. We have been asked to evaluate the patient for chest pain. Patient states that she has had shortness of breath for the past month and it became very severe yesterday. She states she woke up with shortness of breath and also developed chest pain in the epigastric area. Patient is seen today in the emergency center waiting for a bed on the observation unit. On no recent injury to her chest wall. EKG normal sinus rhythm with no acute ST-T wave changes Chest x-ray: No acute findings CTA of the chest negative for pulmonary embolism CBC normal. INR 0.9. D-dimer 2.54. Electrolytes and renal function normal. Glucose 140. Magnesium 1.7. AST 46, ALT 42. Alkaline phosphatase 118. Troponin negative 2. ProBNP less than 20. Lipase 75. Home cardiac medications: Levothyroxine 50 g daily Echocardiogram 2016 revealed normal LV size and function, left ventricular filling pattern suggest pericardial constriction. Trace mitral regurgitation, trace tricuspid regurgitation Lexiscan stress test in 2016 was suboptimal study EF 50-55%, EKG portion not suggestive of ischemia 06/21 The patient is seen today in follow-up on the observation unit. A1c was 6.2. And repeat troponin was negative. Triglycerides 196, cholesterol 172, LDL 89, HDL 43. Echocardiogram reveals EF of 55-60%. Patient denies any new concerns today. Blood pressure 93/53, heart rate in the 50s. Physical examination: Gen: This is a 62-year-old female patient resting in bed and appears to be in no acute distress. VS: reviewed HEENT: Head is atraumatic, normocephalic. Pupils equal, round. Sclerae is anicteric. NECK: Supple. No JVD. . LUNGS: Clear to auscultation. No wheezes or rhonchi. No intercostal retractions. HEART: Regular rate and rhythm. No murmur. No chest wall tenderness EXTREMITIES: No pedal edema. No calf tenderness. NEUROLOGICAL: Patient is awake, alert and oriented x3. Assessment: Chest pain, acute coronary syndrome ruled out Epigastric tenderness History of dyslipidemia Family history of premature coronary artery disease Plan: Continue patient on Lipitor 40 mg daily Patient is cleared for discharge with follow-up in the office with Dr. York in 2 weeks. Nurse practitioner note has been reviewed, I agree with documented findings and plan of care. Patient was seen and examined. Objective - Vital Signs Vital signs: Vital Signs Temp 97.9 F 06/21/23 07:00 Pulse 58 L 06/21/23 08:00 Resp 16 06/21/23 08:00 BP 93/53 06/21/23 07:00 Pulse Ox 97 06/21/23 07:00 FiO2 Intake & Output 06/20/23 06/21/23 06/21/23 18:59 06:59 18:59 Intake Total 118 118 Balance 118 118 Intake: Oral 118 118 Other: Voiding Method Toilet Toilet # Voids 0 0 - Labs CBC & Chem 7: 06/19/23 19:08 06/19/23 19:08 Labs: Abnormal Lab Results - Last 24 Hours (Table) 06/20/23 06/20/23 Range/Units 09:02 09:40 Hemoglobin A1c 6.2 H (<=6.0) % Triglycerides 196.00 H (0.00-149.00) mg/dL
--- NOTE | 2023-06-21 09:44 | P.DS ---
Providers Date of admission: 06/19/23 23:37 Expected date of discharge: 06/21/23 Attending physician: Oseas Sanches MD Consults: 06/19/23 23:37 Consult Physician Urgent Consulting Provider: Matty Caldwell Consult Reason/Comments: chest pain Do you want consulting provider notified?: Yes Primary care physician: Librado Alfaro [facility] Course: Discharge Diagnosis: Chest pain, acute coronary event ruled out. GERD Asthma, mild persistent Hospital Course: Patient is a pleasant 62-year-old female with a past medical history of asthma and GERD. She presented to the emergency department on 06/19/23 with a chief complaint of chest pain. She underwent full evaluation in the emergency department. Vital signs upon arrival blood pressure 134/66, heart rate 87, respiratory rate 16, temp 97.9F, and SpO2 of 95% on room air. EKG completed showing normal sinus rhythm at 74 bpm with no noted T-wave or ST abnormalities showing no signs of acute ischemia upon personal review and interpretation. CBC and BMP were unremarkable. Coagulation profile is normal findings however d- dimer was elevated at 2.54. Magnesium slightly low at 1.7 and liver enzymes slightly elevated with AST of 46 and ALT of 42. Troponin negative at less than 0.012. Chest x-ray negative for acute cardiopulmonary process. CTA chest was completed and negative for acute cardiopulmonary process showing mild cardiomegaly and negative for acute pulmonary emboli showing atherosclerotic changes of the aorta. Patient was admitted under our services to cardiac observation unit. Consult was placed to research and development engineer for evaluation. Troponins trended overnight all negative at less than 0.0123 draws. Hemoglobin A1c 6.2% lipid profile showing elevated triglycerides of 196 otherwise normal findings. Echocardiogram completed showing a preserved EF of 50-55% with no reported valvular or structural abnormalities. Patient cleared from cardiac perspective for outpatient follow-up in their office. Medically, patient reports feeling great and ready to go home. She denies having any complaints or concerns at this time. Patient to follow up outpatient with PCP in 1-2 days and with research and development engineer in 1-2 weeks. Physical examination: Patient seen and examined at bedside. Vital signs reviewed and stable. General: Nontoxic, no distress and appears stated age. Derm: Skin warm and dry, normal coloration for ethnicity. Head: Atraumatic, normocephalic and symmetric. Eyes: EOMs intact, no lid lag, and anicteric sclera Mouth: no lip lesions, mucus membranes moist Cardiovascular: regular rate and rhythm with normal S1S2, no murmur, positive posterior tibial pulses bilaterally, and cap refill < 2 seconds. Lungs: Respirations even, regular, and unlabored on room air. Lungs CTA bilaterally, no rhonchi, no rales, no wheezing, and no accessory muscle usage. Abdominal: soft, nontender to palpation, no guarding, no appreciable organomegaly Ext: ROM intact. No gross muscle atrophy, no edema, no contractures Neuro: Speech clear, face symmetrical and CN II-XII grossly intact with no noted focal neuro deficits Psych: Alert and oriented to person, place, time, and situation. Appropriate and pleasant affect. A total of 32 minutes of time were spent preparing this complex discharge summary. Pt was discharged on 06/21/23 at 9:47 AM. Patient was seen independently by Nurse Practitioner. This document was prepared using [employer] dictation software. Please allow for errors in ground services instructor while rare they do occur. I reviewed the documentation as provided by the TATUM above, who is the original author of this note. I agree with the documented assessment and plan, with the following changes: none Patient Condition at Discharge: Stable Plan - Discharge Summary Discharge Rx Participant: No New Discharge Prescriptions: New Atorvastatin [Lipitor] 40 mg PO DAILY 30 Days #30 tab Continue Venlafaxine HCl ER [Effexor XR] 150 mg PO DAILY Levothyroxine Sodium [Synthroid] 50 mcg PO DAILY Ibuprofen [Motrin] 800 mg PO Q12H PRN PRN Reason: Pain traZODone HCL [Desyrel] 50 mg PO HS ARIPiprazole [Abilify] 7.5 mg PO HS Cholecalciferol [Vitamin D3 (125 Mcg = 5000 Iu)] 125 mcg PO DAILY Discontinued Azithromycin [Zithromax Z Pack] See Taper PO DIRECTED Discharge Medication List Venlafaxine HCl ER [Effexor XR] 150 mg PO DAILY 12/12/14 [History] Levothyroxine Sodium [Synthroid] 50 mcg PO DAILY 06/14/20 [History] Ibuprofen [Motrin] 800 mg PO Q12H PRN 11/23/20 [History] ARIPiprazole [Abilify] 7.5 mg PO HS 06/19/23 [History] Cholecalciferol [Vitamin D3 (125 Mcg = 5000 Iu)] 125 mcg PO DAILY 06/19/23 [History] traZODone HCL [Desyrel] 50 mg PO HS 06/19/23 [History] Atorvastatin [Lipitor] 40 mg PO DAILY 30 Days #30 tab 06/21/23 [Rx] Follow up Appointment(s)/Referral(s): Osmany York MD [STAFF PHYSICIAN] - 07/05/23 11:30 am Librado Stevenson MD [Primary Care Provider] - 1-2 days Patient Instructions/Handouts: Chest Pain (DC), Heart Healthy Diet (DC), Basic Carbohydrate Counting (DC) Activity/Diet/Wound Care/Special Instructions: Activity: As tolerated. Take breaks as needed. Diet: Heart healthy and carb consistent diet. Avoid salts, or foods with hidden salts such as canned or boxed foods and frozen dinners. Extra salt makes your heart work harder and traps the fluid in your body for longer. Special Instructions: Take all of your medications as directed and remember to keep all of your doctor's appointments and follow-up as needed. Hemoglobin A1c was elevated at 6.2%, goal hemoglobin A1c is less than 6%. It is highly recommended that she make lifestyle and dietary modifications to prevent need for diabetic medications in the near future. Recommend following up with your primary care doctor and having a repeat hemoglobin A1c in 3 months to monitor for improvement. Thank you for allowing us to participate in your care, it was truly a pleasure having you for our patient!!! Discharge Disposition: HOME SELF-CARE
== END 2023-06-21 10:48 | disposition home or self-care (01) ==
LOC: EC 18:23 → 6NMEDSUR 23:37
PROVIDERS: ADMIT Internal Medicine; ATTEND Internal Medicine
DX: R07.89 Other chest pain (principal); R10.816 Epigastric abdominal tenderness; J45.30 Mild persistent asthma, uncomplicated; K21.9 Gastro-esophageal reflux disease without esophagitis; F32.A Depression, unspecified; F41.9 Anxiety disorder, unspecified; E03.9 Hypothyroidism, unspecified; E78.5 Hyperlipidemia, unspecified; Z79.890 Hormone replacement therapy; Z79.899 Other long term (current) drug therapy; Z88.0 Allergy status to penicillin; Z88.2 Allergy status to sulfonamides; Z82.49 Family history of ischemic heart disease and other diseases of the circulatory system
CPT/HCPCS: 96372 ×3; 99285; 36415; 93005; 85379; 83880; 80061; 80053; 83690; 83735; 84484 ×2; 85025; 85610; 85730; 83036; 71046; 71275; G0378 ×3; C8929; J1644 ×2; Q9950; Q9967; 93306

== ENCOUNTER → 2023-07-31 | Outpatient (CLI) | payer MEDICARE, OTHER | LOC: CPPFTMAIN 10:48 | PROVIDERS: ATTEND Internal Medicine Clinical Cardiac Electrophysiology | DX: R06.02 Shortness of breath (principal); Z88.8 Allergy status to other drugs, medicaments and biological substances; Z91.011 Allergy to milk products; Z88.0 Allergy status to penicillin; Z88.2 Allergy status to sulfonamides; Z88.1 Allergy status to other antibiotic agents; Z91.018 Allergy to other foods | CPT/HCPCS: 94060; 94726; 94729 ==

== ENCOUNTER → 2024-07-04 | Outpatient (CLI) | payer MEDICARE, OTHER ==
--- NOTE | 2024-07-04 09:47 | CT ---
EXAMINATION TYPE: CT chest wo con DATE OF EXAM: 07/04/2024 9:00 AM COMPARISON: 06/19/2023. CLINICAL INDICATION: Female, 63 years old with history of J84.9 INTERSTITIAL PULMONARY DISEASE, INTER STITIAL PULMONARY DISEASE TECHNIQUE: High-resolution of the chest with 1 mm thick slices every 10 mm. Multiple axial images wer e obtained through the chest. Sagittal and coronal reformats were created for review. Contrast used: mL of (None if empty) Oral contrast used: (None if empty) CT DLP: 1364.5 mGycm, Automated exposure control for dose reduction was used. FINDINGS: LUNGS: Minimal groundglass opacities felt to be invasive atelectasis. There is no evidence of interst itial thickening, honeycombing or architectural distortion in the lungs. No acute area of infiltrativ e or consolidative change. LARGE AIRWAYS: Central airways are patent. No bronchiectasis or bronchial wall thickening. No dynamic airway collapse on expiratory imaging. PLEURA: No pleural effusion or thickening. HEART: Heart is enlarged for size. MEDIASTINUM: No gross evidence of adenopathy. VASCULATURE: No aortic aneurysm. MUSCULOSKELETAL: No acute osseous abnormalities SOFT TISSUES/LYMPH NODES: Unremarkable. LOWER NECK: No significant findings. UPPER ABDOMEN: No significant findings. IMPRESSION: 1. No evidence for fibrosis. No evidence for definitive evidence for interstitial lung disease. Mini mal scattered groundglass changes possibly on the basis of atelectasis.. Findings similar to 06/19/20 23. 2. Mild cardiomegaly. [facility], , 07/04/2024 9:45 AM
--- NOTE | 2024-07-04 12:21 | FL ---
EXAMINATION TYPE: FL sniff test without CXR DATE OF EXAM: 07/04/2024 9:05 AM COMPARISON: 06/19/2023. CLINICAL INDICATION:Female, 63 years old with history of J84.9 INTERSTITIAL PULMONARY DISEASE; J98.6; TECHNIQUE: With the patient standing, fluoroscopy of the right and left hemidiaphragm was observed du ring normal resting respiration as well as deep inspiration, deep expiration, and "sniffing." Fluoroscopic time:31 sec images: : 10 DAP: not reported mGym2 FINDINGS: Nursery Teacher film demonstrates: no focal consolidation, pneumothorax, or pleural effusions. The cardiomedias tinal silhouette is within normal limits. There is elevation of the left hemidiaphragm. This is stab le and compared to previous chest radiograph. The left diaphragm contracts during inspiration. Both hemidiaphragms move together. Normal excursion is demonstrated of the left hemidiaphragm. The right diaphragm contracts during inspiration. Both hemidiaphragms move together. Normal excursion is demonstrated of the right hemidiaphragm. IMPRESSION: Normal sniff test. [facility], , 07/04/2024 12:18 PM
== END | disposition home or self-care (01) ==
LOC: RADFLMAIN 08:11
PROVIDERS: ATTEND Internal Medicine Critical Care Medicine
DX: J84.9 Interstitial pulmonary disease, unspecified (principal); J98.6 Disorders of diaphragm; I51.7 Cardiomegaly
CPT/HCPCS: 71250; 76000

== ENCOUNTER → 2024-12-03 | Outpatient (CLI) | payer MEDICARE, OTHER ==
--- NOTE | 2024-12-03 08:51 | MM ---
Reason for Exam: Screening (asymptomatic). Last mammogram was performed 1 year(s) and 7 month(s) ago. Patient History: Menarche at age 14. First Full-Term at age 30. Postmenopausal. Risk Values: Selina 5 year model risk: 1.7%. NCI Lifetime model risk: 7.4%. Prior Study Comparison: 07/31/2018 Bilateral Screening Mammogram, [facility]. 11/04/2019 Bilateral Screening Mammogram, [facility]. 05/23/2023 Bilateral MG 3D screening mammo w/cad, [facility]. Tissue Density: The breasts are almost entirely fatty. Findings: Analyzed By CAD. There is no suspicious group of microcalcifications or new suspicious mass in either breast. Overall Assessment: Benign, BI-RAD 2 Management: Screening Mammogram of both breasts in 1 year. . Patient should continue monthly self-breast exams. A clinical breast exam by your physician is recommended on an annual basis. This exam should not preclude additional follow-up of suspicious palpable abnormalities. Note on Selina scores and lifetime risk: 1. A Selina score greater than 3% is considered moderate risk. If this is the case, consider specialist referral to assess eligibility for a risk reducing agent. 2. If overall lifetime risk for the development of breast cancer is 20% or higher, the patient may qualify for future screening with alternating mammogram and breast MRI. [facility], , 12/03/2024 8:38 AM. Electronically signed and approved by: Delvin Anderson M.D. Radiologis
== END | disposition home or self-care (01) ==
LOC: RADMAMWWP 08:16
PROVIDERS: ATTEND Family Medicine
DX: Z12.31 Encounter for screening mammogram for malignant neoplasm of breast (principal); R92.313 Mammographic fatty tissue density, bilateral breasts; Z78.0 Asymptomatic menopausal state
CPT/HCPCS: 77063; 77067

== ENCOUNTER 2025-01-09 06:04 | Day surgery (SDC) | payer MEDICARE, OTHER ==
[2025-01-06 15:21] VITALS: BMI 34.3
[2025-01-09 06:50] VITALS: TEMP 97.1
[2025-01-09] MEDS: IV FLUID CONTINUATION 1,000 ML IV ONE (06:55)
[2025-01-09] MEDS: LACTATED RINGERS 1,000 ML IV SCH (06:59)
[2025-01-09] MEDS ORDERED: PROPOFOL 10 MG/ML 20 ML VIAL IV ONE (06:59)
--- NOTE | 2025-01-09 07:21 | P.PCN ---
Date of Procedure: 01/09/25 Procedure(s) Performed: BRIEF HISTORY: Patient is a 64-year-old pleasant white female scheduled for an elective colonoscopy as a part of screening for colon cancer and family history of colon cancer. Her mother was diagnosed with colon cancer at age 60. PROCEDURE PERFORMED: Colonoscopy. PREOPERATIVE DIAGNOSIS: Screening for colon cancer and family history of colon cancer. IV sedation per Anesthesia. PROCEDURE: After informed consent was obtained, the patient, was brought into the endoscopy unit. IV sedation was administered by Anesthesia under continuous monitoring. Digital rectal examination was normal. Initially the Olympus CF-160 flexible video colonoscope was then inserted in the rectum, gradually advanced into the cecum without any difficulty. Careful examination was performed as the scope was gradually being withdrawn. Ileocecal valve and the appendiceal orifice were visualized and appeared normal. Prep was excellent. Mucosa of the cecum, ascending colon, transverse colon, descending colon, sigmoid colon, and rectum appeared normal. Retroflexion was performed in the rectum and no lesions were seen. The patient tolerated the procedure well. IMPRESSION: Normal-appearing colon from rectum to cecum with no evidence of colorectal neoplasia. RECOMMENDATIONS: Findings of this examination were discussed with the patient as well as her family. She was advised to have repeat screening colonoscopy in 5 years because of a family history of colon cancer.
[2025-01-09 07:57] VITALS: BP 114/61; PULSE 60; RESP 18
== END 2025-01-09 08:24 | disposition home or self-care (01) ==
LOC: ORWHC2ENDO 06:04
PROVIDERS: ATTEND Internal Medicine Gastroenterology
DX: Z12.11 Encounter for screening for malignant neoplasm of colon (principal); Z80.0 Family history of malignant neoplasm of digestive organs
CPT/HCPCS: J2704; G0105; 45378

== ENCOUNTER 2025-03-17 23:10 | Emergency (ER) | payer MEDICARE, OTHER ==
--- NOTE | 2025-03-17 23:35 | ED ---
Head Injury HPI - General Chief complaint: Head Injury Stated complaint: Fall, Head Injury Time Seen by Provider: 03/17/25 23:34 Source: patient, RN notes reviewed, old records reviewed Mode of arrival: ambulatory Limitations: no limitations - History of Present Illness Initial comments: This is a 64-year-old female to ER for evaluation patient presents with head laceration fall with head injury MD Complaint: head injury, head pain, fall, other (Head laceration) -: hour(s) Mechanism of Injury: mechanical fall Location: frontal, parietal Loss of Consciousness: yes Place: home Radiation: neck Severity: moderate Severity scale (1-10): 4 Consistency: constant Other Injuries: laceration Associated Symptoms: denies other symptoms - Related Data Home Medications Medication Instructions Recorded Confirmed Venlafaxine HCl ER [Effexor XR] 150 mg PO QAM 12/12/14 01/09/25 Levothyroxine Sodium [Synthroid] 50 mcg PO QAM 06/14/20 01/09/25 Cholecalciferol [Vitamin D3 (125 125 mcg PO QAM 06/19/23 01/09/25 Mcg = 5000 Iu)] traZODone HCL [Desyrel] 50 mg PO HS 06/19/23 01/09/25 Allergies/Adverse reactions: Allergies Allergy/AdvReac Type Severity Reaction Status Date / Time meperidine [From Demerol] Allergy Unknown Verified 03/17/25 23:22 Milk Containing Products Allergy Nausea & Verified 03/17/25 23:22 (Dairy) Vomiting & [Dairy] Diarrhea Penicillins Allergy Unknown Verified 03/17/25 23:22 Childhood sulfamethoxazole Allergy Rash/Hives Verified 03/17/25 23:22 [From Bactrim] trimethoprim [From Bactrim] Allergy Rash/Hives Verified 03/17/25 23:22 gluten AdvReac Abdominal Verified 03/17/25 23:22 Pain Review of Systems ROS Statement: Those systems with pertinent positive or pertinent negative responses have been documented in the HPI. ROS Other: All systems not noted in ROS Statement are negative. Past Medical History Past Medical History: Asthma, GERD/Reflux, Hearing Disorder / Deafness, Thyroid Disorder Additional Past Medical History / Comment(s): states no rx for asthma, prev rx for cholesterol, none currently History of Any Multi-Drug Resistant Organisms: None Reported Past Surgical History: Joint Replacement, Orthopedic Surgery, Tubal Ligation Additional Past Surgical History / Comment(s): glen knee replaced x2, left shoulder rotator cuff, colonoscopy Past Anesthesia/Blood Transfusion Reactions: Previous Problems w/ Anesthesia Additional Past Anesthesia/Blood Transfusion Reaction / Comment(s): "didn't wake up for 3 days" after knee replacement. No hx of blood transfusions to date. Past Psychological History: Anxiety, Depression Smoking Status: Never smoker - Past Family History Mother Family Medical History: Cancer Additional Family Medical History / Comment(s): colon General Exam Limitations: no limitations General appearance: alert, in no apparent distress Head exam: Present: atraumatic, normocephalic, normal inspection Eye exam: Present: normal appearance, PERRL, EOMI. Absent: scleral icterus, conjunctival injection, periorbital swelling ENT exam: Present: normal exam, mucous membranes moist Neck exam: Present: normal inspection. Absent: tenderness, meningismus, lymphadenopathy Respiratory exam: Present: normal lung sounds bilaterally. Absent: respiratory distress, wheezes, rales, rhonchi, stridor Cardiovascular Exam: Present: regular rate, normal rhythm, normal heart sounds. Absent: systolic murmur, diastolic murmur, rubs, gallop, clicks GI/Abdominal exam: Present: soft, normal bowel sounds. Absent: distended, tenderness, guarding, rebound, rigid Extremities exam: Present: normal inspection, full ROM, normal capillary refill. Absent: tenderness, pedal edema, joint swelling, calf tenderness Back exam: Present: normal inspection Neurological exam: Present: alert, oriented X3, CN II-XII intact Psychiatric exam: Present: normal affect, normal mood Skin exam: Present: warm, dry, intact, normal color. Absent: rash Course Vital Signs 03/17/25 03/18/25 23:19 00:57 Temperature 98.1 F 98.2 F Pulse Rate 65 60 Respiratory 18 17 Rate Blood Pressure 155/83 100/67 O2 Sat by Pulse 98 98 Oximetry - Reevaluation(s) Reevaluation #1: 03/17/25 23:35 medical records reviewed Reevaluation #2: 03/19/25 03:46 Patient symptoms improved Reevaluation #3: 03/19/25 03:46 Patient informed of results questions answered Reevaluation #4: Was pt. sent in by a medical professional or institution (, PA, [employer], urgent care, hospital, or half-way...) When possible be specific @ -no Did you speak to anyone other than the patient for history (EMS, parent, family, police, friend...)? What history was obtained from this source @ -no Did you review nursing and triage notes (agree or disagree)? Why? @ -agree Are old charts reviewed (outside hosp., previous admission, EMS record, old EKG, old radiological studies, urgent care reports/EKG's, half-way records)? Report findings @ -yes Differential Diagnosis (chest pain, altered mental status, abdominal pain women, abdominal pain men, vaginal bleeding, weakness, fever, dyspnea, syncope, headache, dizziness, GI bleed, back pain, seizure, CVA, palpatations, mental health, musculoskeletal)? @ -prior EKG interpreted by me (3pts min.). @ -no X-rays interpreted by me (1pt min.). @ -no CT interpreted by me (1pt min.). @ -yes negative for acute disease U/S interpreted by me (1pt. min.). @ -no What testing was considered but not performed or refused? (CT, X-rays, U/S, labs)? Why? @ -none What meds were considered but not given or refused? Why? @ -none Did you discuss the management of the patient with other professionals (professionals i.e. , PA, [employer], lab, RT, psych nurse, licensed master social worker, nursing assistant, teacher, structural engineering drafting officer, rn case management)? Give summary @ -no Was smoking cessation discussed for >3mins.? @ -no Was critical care preformed (if so, how long)? @ -no Were there social determinants of health that impacted care today? How? (Homelessness, low income, unemployed, alcoholism, drug addiction, transportation, low edu. Level, literacy, decrease access to med. care, halfway, rehab)? @ -none Was there de-escalation of care discussed even if they declined (Discuss DNR or withdrawal of care, Hospice)? DNR status @ -no What co-morbidities impacted this encounter? (DM, HTN, Smoking, COPD, CAD, Cancer, CVA, ARF, Chemo, Hep., AIDS, mental health diagnosis, sleep apnea, morbid obesity)? @ -none Was patient admitted / discharged? Hospital course, mention meds given and route, prescriptions, significant lab abnormalities, going to OR and other pertinent info. @ - 64 female fall fall with head injury head laceration with laceration repaired here in the ER CT scanning is negative patient can be discharged home Discharge Undiagnosed new problem with uncertain prognosis? @ -no Drug Therapy requiring intensive monitoring for toxicity (Heparin, Nitro, Insulin, Cardizem)? @ -no Were any procedures done? @ -no Diagnosis/symptom? @ -Head injury with laceration repaired Acute, or Chronic, or Acute on Chronic? @ -Acute Uncomplicated (without systemic symptoms) or Complicated (systemic symptoms)? @ -Complicated Side effects of treatment? @ -no Exacerbation, Progression, or Severe Exacerbation? @ -exacerbation Poses a threat to life or bodily function? How? (Chest pain, USA, IA, pneumonia, PE, COPD, DKA, ARF, appy, cholecystitis, CVA, Diverticulitis, Homicidal, Suicidal, threat to staff... and all critical care pts) @ -yes fall with head injury Reevaluation #5: Differential Headache: Migraine, tension, cluster, carbon monoxide, central venous thrombosis, pension karma temporal arteritis, acute closure glaucoma, intercranial hemorrhage, mastoiditis, sinusitis, head injury, this is not meant to be an all-inclusive list. Procedures - Laceration Laceration #1 Consent Obtained: verbal consent Indication: laceration Site: scalp Size (cm): 3 Description: linear Depth: simple, single layer Size of Sutures: other (eduar) Technique: simple, interrupted Complications: pain Patient Tolerated Procedure: well Medical Decision Making - Medical Decision Making 64 female fall fall with head injury head laceration with laceration repaired here in the ER CT scanning is negative patient can be discharged home - Radiology Data Radiology results: report reviewed (CT brain C-spine is negative for acute disease), image reviewed Disposition Clinical Impression: Closed head injury, Fall, Laceration of head Disposition: HOME SELF-CARE Condition: Good Instructions (If sedation given, give patient instructions): Head Injury (ED) Is patient prescribed a controlled substance at d/c from ED?: No Referrals: Librado Stevenson MD [Primary Care Provider] - 1-2 days Time of Disposition: 01:00
--- NOTE | 2025-03-18 00:34 | CT ---
EXAM: CT Cervical Spine Without Intravenous Contrast CLINICAL HISTORY: ITS.REASON CT Reason: valdivia TECHNIQUE: Axial computed tomography images of the cervical spine without intravenous contrast. CTDI is 12 mGy and DLP is 269.1 mGy-cm. This CT exam was performed using one or more of the following dose reduction techniques: automated exposure control, adjustment of the mA and/or kV according to patient size, and/or use of iterative reconstruction technique. COMPARISON: No relevant prior studies available. FINDINGS: The vertebral body heights are maintained. The craniocervical junction is intact. The atlanto-dens interval is maintained. The dens is intact. There is no spondylolisthesis. Multilevel cervical spondylosis and degenerative disc disease. Straightening of the cervical lordosis. IMPRESSION: No acute fracture or subluxation of the cervical spine.
[2025-03-18 01:00] VITALS: BP 100/67; PULSE 60; RESP 17; TEMP 98.2
== END 2025-03-18 01:21 | disposition home or self-care (01) ==
LOC: EC 23:10
DX: S01.01XA Laceration without foreign body of scalp, initial encounter (principal); Z91.011 Allergy to milk products; Z88.0 Allergy status to penicillin; Z88.1 Allergy status to other antibiotic agents; Z88.2 Allergy status to sulfonamides; Z91.018 Allergy to other foods; Z88.6 Allergy status to analgesic agent; W19.XXXA Unspecified fall, initial encounter; Y92.009 Unspecified place in unspecified non-institutional (private) residence as the place of occurrence of the external cause
CPT/HCPCS: 12002; 70450; 72125; 99283

== ENCOUNTER 2025-04-03 10:15 | Emergency (ER) | payer MEDICARE, OTHER ==
[2025-04-03 10:20] VITALS: BP 114/65; PULSE 79; RESP 18; TEMP 98
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
--- NOTE | 2025-04-03 11:15 | XR ---
EXAMINATION TYPE: XR ankle complete LT DATE OF EXAM: 04/03/2025 COMPARISON: NONE HISTORY: Pain, fall TECHNIQUE: 3 views of the left ankle are submitted for evaluation. FINDINGS: There is no evidence for fracture or dislocation. Ankle mortise is intact. No soft tissue s welling. Posterior plantar calcaneal enthesophyte. IMPRESSION: No evidence for acute fracture. [facility], , 04/03/2025 11:13 AM
--- NOTE | 2025-04-03 11:17 | XR ---
EXAMINATION TYPE: XR ribs RT w pa chest xray DATE OF EXAM: 04/03/2025 11:09 AM INDICATION: Patient age:Female; 64 years old; Reason for study: pain; PHH. pain COMPARISON: Chest radiograph 06/19/2023 TECHNIQUE: Frontal and oblique views of the right ribs with PA chest radiograph. FINDINGS: The ribs have a normal appearance. No evidence of fracture. Overall, the lungs are clear. The cardiac silhouette is enlarged in size. The remaining osseous structures are intact. Dextrocurv ature of the thoracic spine. Multilevel osteophytosis of the thoracic spine. Surgical anchor within t he left humeral head. Chronic widening of the left AC joint. Cholecystectomy clip in the right upper quadrant. IMPRESSION: No acute osseous pathology. [facility], , 04/03/2025 11:15 AM
[2025-04-03 11:41] LABS: Basophils # (A) 0.07 10*3/uL (0.00-0.10); Basophils % (A) 1.0 %; Eosinophils # (A) 0.05 10*3/uL (0.04-0.35); Eosinophils % (A) 0.7 %; HCT 44.5 % (37.2-46.3); HGB 15.1 g/dL (12.0-15.0); Lymphocytes # (A) 1.36 10*3/uL (0.90-5.00); Lymphocytes % (A) 20.1 %; MCH 30.0 pg (27.0-32.0); MCHC 33.9 g/dL (32.0-37.0); MCV 88.5 fL (80.0-97.0); Monocytes # (A) 0.34 10*3/uL (0.20-1.00); Monocytes % (A) 5.0 %; Neutrophils # (A) 4.93 10*3/uL (1.80-7.70); Neutrophils % (A) 73.1 %; Platelet Count 220 10*3/uL (140-440); RBC 5.03 10*6/uL (4.10-5.20); RDW 14.4 % (11.5-14.5); WBC 6.76 10*3/uL (4.50-10.00)
[2025-04-03 11:53] LABS: ALT 34 U/L (4-34); AST 54 U/L (14-36); African American GFR (CKD) >90 (>60 ml/min/1.73 sqM); Albumin 4.5 g/dL (3.5-5.0); Alkaline Phosphatase 143 U/L (38-126); Anion Gap 10 mmol/L; Blood Urea Nitrogen 15 mg/dL (7-17); Calcium 10.0 mg/dL (8.4-10.2); Carbon Dioxide 28 mmol/L (22-30); Chloride 104 mmol/L (98-107); Glucose 104 mg/dL (74-99); Magnesium 1.9 mg/dL (1.6-2.3); Non-African American GFR(CKD) >90 (>60 ml/min/1.73 sqM); Potassium 4.7 mmol/L (3.5-5.1); Sodium 142 mmol/L (137-145); Total Protein 7.4 g/dL (6.3-8.2)
[2025-04-03 12:49] LABS: INR 0.9 (<1.2); Partial Thromboplastin Time 22.2 sec (22.0-30.0); Prothrombin Time 10.2 sec (10.0-12.5)
== END 2025-04-03 14:04 | disposition home or self-care (01) ==
LOC: EC 10:15
DX: S93.402A Sprain of unspecified ligament of left ankle, initial encounter (principal); R07.89 Other chest pain; Z88.0 Allergy status to penicillin; Z91.011 Allergy to milk products; Z88.1 Allergy status to other antibiotic agents; Z88.2 Allergy status to sulfonamides; Z91.018 Allergy to other foods; Z88.6 Allergy status to analgesic agent; X50.1XXA Overexertion from prolonged static or awkward postures, initial encounter
CPT/HCPCS: 36415; 80053; 83735; 84484; 85025; 85610; 85730; 93005; 99285